=== PATIENT | male | born 1945 | race Caucasian/White ===

== ENCOUNTER 2017-03-21 07:59 | Inpatient (IN) | payer OTHER ==
[2017-03-21] VITALS (12 sets, daily range): BP systolic 95–110; BP diastolic 55–65; PULSE 57–65; TEMP 36.6; O2SAT 91–97; Ht 177.8 cm; Wt 91.3 kg
[~2017-03-21] VITALS: Ht 177.8 cm; Wt 91.3 kg
[~2017-03-21 07:59] MED LIST: ASPEC325 PO; ATOR-22 PO; CLX20 PO; LISI5TAB3 PO; NXM/40 PO
[2017-03-21] MEDS ORDERED: SIMV20TA2 PO (08:23)
[2017-03-21] MEDS ORDERED: PRLSR20 PO (08:23)
[2017-03-21] MEDS ORDERED: LSN/10125 PO (08:23)
[2017-03-21] MEDS ORDERED: AMLO-114 PO (08:23)
[2017-03-21] MEDS ORDERED: EFF75 PO (08:23)
--- NOTE | 2017-03-21 08:57 | EMERGENCY ROOM VISIT NOTE ---
History Report prepared by Tyesha: Verito Fajardo Under the Supervision of: Dr. Leela López D.O. First contact with patient: 08:03 Chief Complaint: CHEST PAIN Stated Complaint: CHEST PAIN Nursing Triage Summary: pt reports chest pain started this am at 0600 described as discomfort like squeezing intermittently. feels nauseated. pain radiates to left arm. has hx of mi in 1999. pt reports he has been sob for last week increasingly worse with exertion. History of Present Illness The patient is a 72 year old male who presents to the Emergency Room with complaints of intermittent chest pain for the past two hours. He states that he felt fine when he went to bed last night, and he was not having any chest pain. He woke up this morning with achy chest pain that he rates as a 2/10 in severity. It radiates down his left arm and into his neck and posterior shoulder. He was diaphoretic and called an ambulance to come to the ED. His chest pain is worsened with exertion and alleviated with rest. He denies any current chest pain or shortness of breath. The patient has a history of a previous [place] in 1999. He had one stent placed at that time. He does not follow regularly with cardiology and estimates that he has not seen a a p supervisor in over 10 years. He reports that his current pain feels very similar to the pain that he experienced with his previous TN, except that it is less severe now. The patient states that he has not been feeling well for the past week. He has been experiencing nausea, increased fatigue, and shortness of breath with exertion. He denies fevers, chills, cough, vomiting, lightheadedness, and dizziness. He did not take any medication for his symptoms today. He takes aspirin daily and denies any other anticoagulant use. The patient received aspirin and Zofran en route to the ED. Source of History: patient Onset: 2 hours ago Position: chest Symptom Intensity: 2/10 Quality: ache Timing: intermittent Modifying Factors (Worsening): exertion Modifying Factors (Relieving): rest Associated Symptoms: + diaphoresis, + neck pain, + SOB, + nausea, + back pain, + fatigue, No fevers, No chills, No cough, No vomiting Note: Pt denies lightheadedness and dizziness. Review of Systems See HPI for pertinent positives & negatives. A total of 10 systems reviewed and were otherwise negative. Past Medical & Surgical Medical Problems: (1) Hx of myocardial infarction (2) Hypertension Surgical Problems: (1) History of hernia repair Family History Diabetes mellitus FHx: cancer Heart disease Hypertension Social History Smoking Status: Former Smoker Alcohol Use: occasionally Housing Status: lives alone Occupation Status: retired Current/Historical Medications Scheduled Amlodipine (Norvasc), 10 MG PO DAILY Hctz/Lisinopril (Lisinopril/Hctz 10/12.5 Mg), 1 TAB PO DAILY Omeprazole (Prilosec), 20 MG PO DAILY Simvastatin (Zocor), 20 MG PO DAILY Venlafaxine Hcl (Effexor Xr), 75 MG PO DAILY Allergies Coded Allergies: No Known Allergies (Unverified , 12/26/06) Physical Exam Vital Signs Date Time Temp Pulse Resp B/P (MAP) Pulse Ox O2 Delivery O2 Flow Rate FiO2 03/21/17 12:01 107/62 03/21/17 11:59 62 17 94 03/21/17 11:38 64 20 104/67 96 Room Air 03/21/17 11:31 104/67 03/21/17 11:29 64 20 95 03/21/17 11:01 103/58 03/21/17 10:59 62 20 92 03/21/17 10:31 106/62 03/21/17 10:29 57 6 93 03/21/17 10:06 60 18 107/63 96 Room Air 03/21/17 10:01 107/63 03/21/17 09:59 67 14 96 03/21/17 09:31 116/61 03/21/17 09:29 55 12 96 03/21/17 09:01 113/60 03/21/17 08:59 58 18 133/85 96 Room Air 03/21/17 08:59 58 19 96 03/21/17 08:58 113/70 03/21/17 08:29 80 22 93 03/21/17 08:05 93 Room Air 03/21/17 08:05 93 Room Air 03/21/17 08:05 36.6 83 18 133/85 93 Room Air 03/21/17 08:03 76 03/21/17 08:01 133/85 Physical Exam GENERAL: alert, well appearing, well nourished, no distress, non-toxic EYE EXAM: normal conjunctiva, PERRL and EOM's grossly intact OROPHARYNX: no exudate, no erythema, lips, buccal mucosa, and tongue normal and mucous membranes are moist NECK: supple, no nuchal rigidity, no adenopathy, non-tender LUNGS: Breath sounds diminished, no wheezes, rhonchi, or rales. Normal chest wall mechanics HEART: no murmurs, S1 normal and S2 normal ABDOMEN: abdomen soft, non-tender, normo-active bowel sounds, no masses, no rebound or guarding. BACK: Back is symmetrical on inspection and there is no deformity, no midline tenderness, no CVA tenderness. SKIN: no rashes and no bruising UPPER EXTREMITIES: upper extremities are grossly normal. LOWER EXTREMITIES: No pitting edema. NEURO EXAM: Normal sensorium, cranial nerves II-XII grossly intact, normal speech, no gross weakness of arms, no gross weakness of legs. Medical Decision & Procedures ER Provider Diagnostic Interpretation: Radiology results have been interpreted by the radiologist and reviewed by me. CHEST ONE VIEW PORTABLE CLINICAL HISTORY: Atypical chest pain COMPARISON STUDY: No previous studies for comparison. FINDINGS: The cardiac and mediastinal contours are normal. There is no evidence of focal pulmonary consolidation. There is no evidence of failure. No pleural effusions are visualized.[ IMPRESSION: No active disease in the chest. Electronically signed by: Rip Galdamez M.D. 03/21/2017 8:58 AM Dictated Date/Time: 03/21/2017 8:56 AM Laboratory Results 03/21/17 08:05 Red Blood Count 5.29, Mean Corpuscular Volume 87.7, Mean Corpuscular Hemoglobin 31.9, Mean Corpuscular Hemoglobin Concent 36.4, Mean Platelet Volume 11.3, Neutrophils (%) (Auto) 71.0, Lymphocytes (%) (Auto) 18.7, Monocytes (%) (Auto) 9.3, Eosinophils (%) (Auto) 0.7, Basophils (%) (Auto) 0.1, Neutrophils # (Auto) 6.75, Lymphocytes # (Auto) 1.78, Monocytes # (Auto) 0.89, Eosinophils # (Auto) 0.07, Basophils # (Auto) 0.01 03/21/17 08:05 Test 03/21/17 08:05 03/21/17 09:30 03/21/17 11:38 White Blood Count 9.52 K/uL (4.8-10.8) Red Blood Count 5.29 M/uL (4.7-6.1) Hemoglobin 16.9 g/dL (14.0-18.0) Hematocrit 46.4 % (42-52) Mean Corpuscular Volume 87.7 fL (80-100) Mean Corpuscular Hemoglobin 31.9 pg (25-34) Mean Corpuscular Hemoglobin Concent 36.4 g/dl (32-36) Platelet Count 255 K/uL (130-400) Mean Platelet Volume 11.3 fL (7.4-10.4) Neutrophils (%) (Auto) 71.0 % Lymphocytes (%) (Auto) 18.7 % Monocytes (%) (Auto) 9.3 % Eosinophils (%) (Auto) 0.7 % Basophils (%) (Auto) 0.1 % Neutrophils # (Auto) 6.75 K/uL (1.4-6.5) Lymphocytes # (Auto) 1.78 K/uL (1.2-3.4) Monocytes # (Auto) 0.89 K/uL (0.11-0.59) Eosinophils # (Auto) 0.07 K/uL (0-0.5) Basophils # (Auto) 0.01 K/uL (0-0.2) RDW Standard Deviation 38.9 fL (36.4-46.3) RDW Coefficient of Variation 12.2 % (11.5-14.5) Immature Granulocyte % (Auto) 0.2 % Immature Granulocyte # (Auto) 0.02 K/uL (0.00-0.02) Prothrombin Time 10.2 SECONDS (9.0-12.0) Prothromb Time International Ratio 1.0 (0.9-1.1) Anion Gap 8.0 mmol/L (3-11) Est Creatinine Clear Calc Drug Dose 79.1 ml/min Estimated GFR () 88.0 Estimated GFR (Non- 75.9 BUN/Creatinine Ratio 16.0 (10-20) Calcium Level 9.2 mg/dl (8.5-10.1) Magnesium Level 2.0 mg/dl (1.8-2.4) Total Bilirubin 0.6 mg/dl (0.2-1) Aspartate Amino Transf (AST/SGOT) 17 U/L (15-37) Alanine Aminotransferase (ALT/SGPT) 22 U/L (12-78) Alkaline Phosphatase 90 U/L (45-117) Pro-B-Type Natriuretic Peptide 308 pg/ml (0-900) Total Protein 7.6 gm/dl (6.4-8.2) Albumin 3.7 gm/dl (3.4-5.0) Globulin 3.9 gm/dl (2.5-4.0) Albumin/Globulin Ratio 1.0 (0.9-2) Activated Partial Thromboplast Time 25.5 SECONDS (21.0-31.0) Partial Thromboplastin Ratio 1.0 Total Creatine Kinase 193 U/L (39-308) Creatine Kinase MB 31.8 ng/ml (0.5-3.6) Creatine Kinase MB Ratio 16.5 (0-3.0) Troponin I 2.840 ng/ml (0-0.045) Laboratory results per my review. Medications Administered Medications (Trade) Dose Ordered Sig/José Manuel Route Start Time Stop Time Status Last Admin Dose Admin Nitroglycerin (Nitroglycerin 2% Oint) 1 inch NOW ONCE EXT 03/21/17 10:00 03/21/17 10:01 DC 03/21/17 10:04 1 INCH Sodium Chloride 1,000 ml @ 125 mls/hr Q8H STAT IV 03/21/17 10:23 03/21/17 14:27 DC 03/21/17 10:37 125 MLS/HR Heparin Sodium/ Dextrose (Heparin 25,000 Unit/500ml D5W) 25,000 unit STK-MED ONCE .ROUTE 03/21/17 11:23 03/21/17 11:24 DC 03/21/17 11:34 25,000 UNIT Heparin Sodium (Porcine) (Heparin Iv Bolus) 10,000 unit STK-MED ONCE .ROUTE 03/21/17 11:24 03/21/17 11:25 DC 03/21/17 11:34 10,000 UNIT ECG Indication: chest pain Rate (beats per minute): 76 Rhythm: normal sinus Findings: nonspecific-ST abn (lead 1 & 2), ST depression (V3 - V6), other ( normal axis, normal intervals) Comparison ECG Date: no prior available Change: ST depression are less severe on repeat ECG. ED Course 0803: The patient was evaluated in room B2. A complete history and physical exam was performed. 0951: I updated the patient and his family at bedside. 1000: Nitroglycerin 1 inch EXT 1016: I reevaluated the patient and he is pain free at this time. I discussed the results and treatment plan with the patient. I answered all pertaining questions that he had. He expressed understanding and verbalized agreement. 1023: NSS 1000 ml @ 125 mls/hr IV 1030: Dr. Barraza of the [facility] will evaluate the patient for further management. 1044: I discussed the patient's case with Dr. Pino of cardiology. He will consult with the patient in the ED. 1058: Heparin IV bolus and drip 1133: I reassessed the patient and he is doing well. Medical Decision Differential diagnoses includes but is not limited to acute coronary syndrome, myocardial infarction, pericarditis, pulmonary embolus, aortic dissection, pneumonia, pneumothorax, musculoskeletal, shingles, esophageal. Patient well-appearing here and no pain while resting in bed. First EKG concerning with ST depression. Repeat EKG after nitroglycerin and started on heparin was improved. Troponin mildly elevated, vital signs otherwise stable. Patient admitted for non-ST elevation TN. Patient aware of likely need for cardiology consultation and additional testing/interventions. Doubt dissection , tamponade, PE, no evidence of infiltrate or effusion, no evidence of perforation or GI bleed. Medication Reconcilliation Current Medication List: was personally reviewed by me Blood Pressure Screening Patient's blood pressure: Normal blood pressure Consults Time Called: 1041 Consulting Physician: Dr. Pino Returned Call: 1044 I discussed the patient's case with Dr. Pino of cardiology. He will consult with the patient in the ED. Impression Primary Impression: NSTEMI (non-ST elevated myocardial infarction) Additional Impression: Chest pain Critical Care I have personally spent 35 minutes of critical care time in the direct management of this patient. This includes bedside care, interpretation of diagnostic studies, and testing, discussion with consultants, patient, and family members, and other required patient management activities. This 35 minutes is in excess of all separately billable procedures. Scribe Attestation The scribe's documentation has been prepared under my direction and personally reviewed by me in its entirety. I confirm that the note above accurately reflects all work, treatment, procedures, and medical decision making performed by me. Departure Information Dispostion Being Evaluated By Hospitalist Referrals No Doctor, Assigned (PCP) Patient Instructions My [facility] Problem Qualifiers Additional Impression: Chest pain Chest pain type: chest pain due to myocardial ischemia Ischemic chest pain type: stable angina pectoris Qualified Codes: I20.8 - Other forms of angina pectoris
[2017-03-21] MEDS ORDERED: ASPIRIN/ALUM/MAGNES/CAL CARB 325 MG TAB PO STA (09:03)
[2017-03-21 09:24] LABS: BASO % 0.1 %; BASO ABS # 0.01 K/uL (0-0.2); COMPLETE YES; EOS % 0.7 %; HEMATOCRIT 46.4 % (42-52); IG% 0.2 %; LYMPH % 18.7 %; LYMPH ABS # 1.78 K/uL (1.2-3.4); MEAN CELL VOLUME 87.7 fL (80-100); MEAN CORPUSCULAR HEMOGLOBIN 31.9 pg (25-34); MEAN CORPUSCULAR HGB CONC 36.4 g/dl (32-36); MEAN PLATELET VOLUME 11.3 fL (7.4-10.4); MONO % 9.3 %; PLATELET COUNT 255 K/uL (130-400); RED BLOOD COUNT 5.29 M/uL (4.7-6.1); WHITE BLOOD COUNT 9.52 K/uL (4.8-10.8)
[2017-03-21 09:27] LABS: PROTHROMBIN TIME (PATIENT) 10.2 SECONDS (9.0-12.0)
[2017-03-21 09:33] LABS: CALCIUM 9.2 mg/dl (8.5-10.1); POTASSIUM 3.7 mmol/L (3.5-5.1)
[2017-03-21] MEDS ORDERED: NITROGLYCERIN OINT 2% 1GM PACKET EXT ONE (10:00)
[2017-03-21] MEDS ORDERED: SODIUM CHLORIDE 0.9% 1000ML 1,000 ML IV STA (10:23)
[2017-03-21] MEDS ORDERED: HEPARIN SOD 5000 UNIT/0.5 ML CARP ONE (11:23)
[2017-03-21] MEDS ORDERED: HEPARIN 25000 UNIT/500 ML D5W ONE (11:23)
[2017-03-21] MEDS ORDERED: HEPARIN SOD (PORCINE) 1000 UNIT/ML 10 ML VIAL ONE ×3 (11:24→21:11)
[2017-03-21] MEDS ORDERED: NITROGLYCERIN 0.4 MG SL PER TAB CHARGE SL PRN (11:30)
[2017-03-21] MEDS ORDERED: ONDANSETRON INJ 2 MG/ML 2 ML VIAL IV PRN (11:30)
[2017-03-21] MEDS ORDERED: MoRPHine SULFATE 2 MG/ML CARP IV PRN (11:30)
[2017-03-21] MEDS ORDERED: ACETAMINOPHEN 325 MG TAB PO PRN ×2 (11:30→20:30)
[2017-03-21] MEDS ORDERED: ZOLPIDEM TARTRATE 5 MG TAB PO PRN (11:30)
[2017-03-21] MEDS: HEPARIN 25,000 UNIT/500ML D5W 500 ML IV PRN ×2 (11:36→11:37)
--- NOTE | 2017-03-21 11:53 | History and Physical ---
History & Physical Date & Time of Service: Mar 21, 2017 at 11:29 Chief Complaint: Chest Pain Primary Care Physician: Teddy Barroso M.D. History of Present Illness Source: patient, family The patient is a 72-year-old male who developed shortness of breath 4 days ago while he was getting ready to mow his lawn. He has continued to have chest discomfort into his left axilla since that time, and has had nausea and persistent fatigue. He reports that last night he was not able to sleep, and when he developed pain radiating into his neck and left arm along with sweats this morning, he called the ambulance to bring him to the emergency department. He does have a history of a previous [place] with stent placement in 1999. He reports that his current pain feels very similar to but is less severe than the pain that he had with his previous [place]. He reports that he did take all of his blood pressure medications this morning, and is very regular about taking Family History Noncontributory Social History Smoking Status: Former Smoker Smokeless Tobacco Use: No Alcohol Use: none Drug Use: none Occupational Status: retired Immunizations History of Influenza Vaccine: Unknown History of Tetanus Vaccine?: Unknown History of Pneumococcal: Unknown History of Hepatitis B Vaccine: Unknown Multi-Drug Resistant Organisms History of MDRO: No Allergies Coded Allergies: No Known Allergies (Unverified , 12/26/06) Home Medications Scheduled Amlodipine (Norvasc), 10 MG PO DAILY Hctz/Lisinopril (Lisinopril/Hctz 10/12.5 Mg), 1 TAB PO DAILY Omeprazole (Prilosec), 20 MG PO DAILY Simvastatin (Zocor), 20 MG PO DAILY Venlafaxine Hcl (Effexor), 75 MG PO DAILY Review of Systems The patient denies lower extremity swelling, vision change, hearing change, sore throat, fevers, chills, sweats, weight change, vomiting, diarrhea or constipation, abdominal pain, pelvic pain, blood in urine or stool, dysuria, urinary frequency or urgency, lightheadedness, dizziness, headache, memory loss , rash, abnormal bruising or bleeding, imbalance, focal or generalized weakness , numbness or tingling in legs, generalized arthralgias or myalgias, neck pain, night sweats, or allergy symptoms. The review of systems is otherwise negative other than for that already noted above, and at least 10 systems have been reviewed. Physical Exam Vital Signs Date Time Temp Pulse Resp B/P (MAP) Pulse Ox O2 Delivery O2 Flow Rate FiO2 03/21/17 10:06 60 18 107/63 96 Room Air 03/21/17 08:59 58 18 133/85 96 Room Air 03/21/17 08:05 93 Room Air 03/21/17 08:05 93 Room Air 03/21/17 08:05 36.6 83 18 133/85 93 Room Air 03/21/17 08:03 76 The patient is awake, well-developed and adequately nourished, alert and oriented 3, normocephalic and atraumatic, lying in bed and in no acute distress. HEENT--PERRL, EOMI, mucous membranes and oropharynx normal. Neck--supple, no JVD or bruits, thyroid normal, trachea midline, no adenopathy. Heart--normal S1 and S2, no extra beats, no murmurs, rubs or gallops. Lungs--clear bilaterally with good air movement, no respiratory distress, no accessory muscle use. Abdomen--normal bowel sounds and soft, nontender and nondistended, no hernias or masses, no organomegaly. Extremities--no cyanosis, clubbing or edema. There are good distal pulses b/l. Dermatologic--normal skin turgor, normal color, warm and dry, no abnormal lymph nodes, no rash. Neurologic--cranial nerves II through XII grossly intact, motor and sensory examination normal. Rheumatologic--normal range of motion, nontender, muscles and joints. Psychiatric--normal affect. Diagnostics Laboratory Results Results Past 24 Hours Test 03/21/17 08:05 03/21/17 09:30 03/21/17 11:21 Range/Units White Blood Count 9.52 4.8-10.8 K/uL Red Blood Count 5.29 4.7-6.1 M/uL Hemoglobin 16.9 14.0-18.0 g/dL Hematocrit 46.4 42-52 % Mean Corpuscular Volume 87.7 80-100 fL Mean Corpuscular Hemoglobin 31.9 25-34 pg Mean Corpuscular Hemoglobin Concent 36.4 32-36 g/dl Platelet Count 255 130-400 K/uL Mean Platelet Volume 11.3 7.4-10.4 fL Neutrophils (%) (Auto) 71.0 % Lymphocytes (%) (Auto) 18.7 % Monocytes (%) (Auto) 9.3 % Eosinophils (%) (Auto) 0.7 % Basophils (%) (Auto) 0.1 % Neutrophils # (Auto) 6.75 1.4-6.5 K/uL Lymphocytes # (Auto) 1.78 1.2-3.4 K/uL Monocytes # (Auto) 0.89 0.11-0.59 K/uL Eosinophils # (Auto) 0.07 0-0.5 K/uL Basophils # (Auto) 0.01 0-0.2 K/uL RDW Standard Deviation 38.9 36.4-46.3 fL RDW Coefficient of Variation 12.2 11.5-14.5 % Immature Granulocyte % (Auto) 0.2 % Immature Granulocyte # (Auto) 0.02 0.00-0.02 K/uL Prothrombin Time 10.2 9.0-12.0 SECONDS Prothromb Time International Ratio 1.0 0.9-1.1 Sodium Level 139 136-145 mmol/L Potassium Level 3.7 3.5-5.1 mmol/L Chloride Level 103 98-107 mmol/L Carbon Dioxide Level 28 21-32 mmol/L Anion Gap 8.0 3-11 mmol/L Blood Urea Nitrogen 16 7-18 mg/dl Creatinine 1.00 0.60-1.40 mg/dl Est Creatinine Clear Calc Drug Dose 79.1 ml/min Estimated GFR () 88.0 Estimated GFR (Non- 75.9 BUN/Creatinine Ratio 16.0 10-20 Random Glucose 151 70-99 mg/dl Calcium Level 9.2 8.5-10.1 mg/dl Magnesium Level 2.0 1.8-2.4 mg/dl Total Bilirubin 0.6 0.2-1 mg/dl Aspartate Amino Transf (AST/SGOT) 17 15-37 U/L Alanine Aminotransferase (ALT/SGPT) 22 12-78 U/L Alkaline Phosphatase 90 45-117 U/L Troponin I 0.381 0-0.045 ng/ml Pro-B-Type Natriuretic Peptide 308 0-900 pg/ml Total Protein 7.6 6.4-8.2 gm/dl Albumin 3.7 3.4-5.0 gm/dl Globulin 3.9 2.5-4.0 gm/dl Albumin/Globulin Ratio 1.0 0.9-2 Activated Partial Thromboplast Time 25.5 21.0-31.0 SECONDS Partial Thromboplastin Ratio 1.0 Creatine Kinase MB Ratio 0-3.0 Diagnostic Radiology Patient Name: TREVOR LANDIS Unit Number: [id number] Dictated: 03/21/17855 Transcribed: 03/21/17855 ARG Printed Date/Time: [~ rep prt dt]/[~ rep prt tm] [~ rep ct labl] - [~ rep ct ivnm] [facility] Radiology Department [place], [place] [id number] Dictated: 03/21/17855 Transcribed: 03/21/17855 ARG Printed Date/Time: [~ rep prt dt]/[~ rep prt tm] [~ rep ct labl] - [~ rep ct ivnm] [~ rep ct add3]] CHEST ONE VIEW PORTABLE CLINICAL HISTORY: Atypical chest pain COMPARISON STUDY: No previous studies for comparison. FINDINGS: The cardiac and mediastinal contours are normal. There is no evidence of focal pulmonary consolidation. There is no evidence of failure. No pleural effusions are visualized.[ IMPRESSION: No active disease in the chest. Electronically signed by: Rip Galdamez M.D. 03/21/2017 8:58 AM Dictated Date/Time: 03/21/2017 8:56 AM The status of this report is Signed. Draft = Not yet reviewed or approved by Radiologist. Signed = Reviewed and approved by Radiologist. <AttendingPhy></AttendingPhy> <FamilyPhy>Teddy Barroso M.D.</FamilyPhy > <PrimaryPhy>Teddy Barroso M.D.</PrimaryPhy> <UnitNumber>[id number]</ UnitNumber> <VisitNumber>[id number]</VisitNumber> <PatientName>TREVOR LANDIS</PatientName> <DateOfBirth>1945</DateOfBirth> <Location>[facility].EDB< /Location> <ServiceDate>03/21/17</ServiceDate> <MNE>ESINDI</MNE> <OrderingPhy> PheLeela king DO</OrderingPhy> <OrderingPhyMNE>f rep ord dr bello</ OrderingPhyMNE> <DictatingPhyMNE>f rep dict dr bello</DictatingPhyMNE> <CCListMNE> f rep ct mne</CCListMNE> <AdmittingPhyMNE>f pt admit dr bello</AdmittingPhyMNE> < AttendingPhyMNE>f pt attend dr bello</AttendingPhyMNE> <ConsultingPhyMNE>f pt consult dr bello</ConsultingPhyMNE> <FamilyPhyMNE>f pt fam dr bello</FamilyPhyMNE> <OtherPhyMNE>f pt other dr belol</OtherPhyMNE> < PrimaryPhyMNE>f pt prim care dr bello</PrimaryPhyMNE> <ReferringPhyMNE>f pt referring dr bello</ReferringPhyMNE> EKG EKG #1 shows normal sinus rhythm at 76 bpm, with ST depressions in V3 through V6 , and PVCs. EKG #2, after placement of Nitropaste 1 inch, shows sinus bradycardia at 57 bpm , significant improvement in above ST depressions, and no further PVCs Impression Assessment and Plan NSTEMI/Unstable Angina--The patient will be admitted to telemetry for serial cardiac enzymes, cardiac rhythm monitoring and a 2-D echocardiogram with Dopplers. Aspirin 81 mg chewable every morning. Nitropaste 1 inch to the inferior chest wall every 6 hours. Heparin infusion standard weight-based protocol with bolus. NSS with KCl 20 mEq at 100 mils per hour. Discontinue HCTZ. Continue lisinopril 10 mg by mouth every morning. Decrease amlodipine from 10 mg to 5 mg by mouth daily. Unable to add beta aleksandra at this time due to low blood pressure. Consult cardiology Hyperlipidemia--change simvastatin 20 mg by mouth daily 2 atorvastatin 80 mg by mouth daily. GERD--change omeprazole 20 mg by mouth daily to pantoprazole 40 mg by mouth daily and add famotidine 20 mg IV every 12 hours. Depression--continue Effexor 75 mg by mouth daily. Level of Care Telemetry Advanced Directives Existing Advance Directive: No Existing Living Will: No Existing Power of Lithographic Proofer: No Resuscitation Status FULL RESUSCITATION VTE Prophylaxis Risk Level: Moderate Given or contraindicated: Unfractionated heparin SQ Social Service Consult None Apply
[2017-03-21 12:32] LABS: CKMB/CK RATIO 16.5 (0-3.0)
[2017-03-21] MEDS ORDERED: VENL75CA PO (14:42)
[2017-03-21] MEDS: FAMOTIDINE IV INJ 20 MG in DEXTROSE 5% 100ML 100 ML IV SCH ×2 (14:51→22:27)
[2017-03-21] MEDS: NSS + 20MEQ KCL 1000ML 1,000 ML IV SCH ×2 (14:51→22:29)
[2017-03-21] MEDS: NITROGLYCERIN OINT 2% 1GM PACKET EXT SCH ×2 (16:26→22:00)
--- NOTE | 2017-03-21 16:41 | CARDIOLOGY CONSULTATION REPORT ---
DATE OF CONSULTATION: 03/21/2017 REASON FOR CONSULTATION: 1. NSTEMI. 2. CAD. HISTORY OF PRESENT ILLNESS: Mr. Jackson is a 72-year-old white male with a history of longstanding hypertension, dyslipidemia, and CAD, status post WI in 1999 with deployment of a stent at [facility] (details unknown, the patient does not have stent card) who presented acutely to [facility] Emergency Room today, complaining of exertional dyspnea x 5 days, followed by development of a left-sided chest discomfort, which radiates into his axilla, left arm, left neck and he has had ongoing associated diaphoresis, nausea, and fatigue. The patient states that these symptoms have only been present with exertion and have consistently gone away within 5 minutes of resting. He has not tried a nitroglycerin for this. His symptoms are very reminiscent to his prior angina pectoris. The patient offers no other complaints. He denies any shortness of breath at rest, orthopnea, or PND. He denies any palpitations, syncope, or near syncope. He has not experienced any angina pectoris at rest. He remains compliant with his medications and has not had any of side effects. MEDICATIONS: 1. Aspirin 81 mg daily. 2. Norvasc 5 mg daily. 3. Effexor XR 75 mg daily. 4. Lisinopril 10 mg a day. 5. Lipitor 80 mg q.a.m. 6. Protonix 40 mg q.a.m. 7. Nitroglycerin ointment 1 inch q. 6 hours to external chest wall. 8. Famotidine 20 mg IV q. 12 hours. 9. Normal saline with potassium chloride at 100 mL per hour. 10. Zofran 4 mg IV q. 6 hours p.r.n. 11. Acetaminophen 650 mg p.o. q. 4 hours p.r.n. for fever. 12. Ambien p.r.n. 13. Morphine sulfate 2 mg IV q. 30 minutes p.r.n. for chest pain. 14. Heparin drip. ALLERGIES: NKDA. PAST MEDICAL HISTORY: 1. Hypertension. 2. Dyslipidemia. 3. History of WI in 1999 with stent deployment, details unknown. 4. DJD. 5. History of tobacco use previously. 6. GERD. 7. Depression. SOCIAL HISTORY: The patient is . His after a prolonged gbibons with breast cancer. He is accompanied by his daughter and son today, he is from a very supportive family. He does not use tobacco or tobacco products. He quit smoking in 1999. FAMILY HISTORY: Noncontributory. PHYSICAL EXAMINATION: VITAL SIGNS: Temperature is 36.6 degrees Celsius, pulse 58 and regular, respiratory rate is 12 and unlabored, blood pressure 104/60 and SpO2 is 94% on room air. GENERAL: The patient is in no acute distress. He is lying comfortably in room 289, bed 2. HEAD, EYES, EARS, NOSE, AND THROAT: Head is atraumatic and normocephalic. EOMs intact. Sclera anicteric. Face is symmetric. No perioral cyanosis. Mucous membranes are moist. NECK: Without thyromegaly, adenopathy, or JVD. Carotid upstrokes are +2 bilaterally without bruits. CHEST AND LUNGS: Clear to auscultation throughout all lung delgadillo, no wheezes, rales, or rhonchi. CARDIOVASCULAR SYSTEM: S1 and S2 are regular, bradycardic, without obvious murmur, gallop, or rub. PMI is nondisplaced. No lifts, heaves, or thrills. No abdominal, aortic or renal bruits. Femoral arterial upstrokes are +2 bilaterally. ABDOMINAL EXAMINATION: Bowel sounds are present. No masses, organomegaly, or tenderness. EXTREMITIES: No clubbing, cyanosis, or edema. Intact radial and posterior tibial pulses bilaterally. Gerry's test positive for both ulnar and radial reflow of the right upper extremity. NEUROLOGIC EXAMINATION: The patient is awake, alert and oriented. Pleasant and cooperative. Answers questions appropriately. Speech is clear. Normal movement in all 4 extremities. Gait pattern not assessed. EKG: On admission shows sinus rhythm with occasional PVCs; Q waves present in leads 2, 3, and aVF; appears to be some T-wave inversion in the precordial leads, V3 through V6 as well as 1 and aVL. LABORATORY DATA: White blood cell count is 9.52, hemoglobin is 16.9 g/dL, hematocrit 46.4%, and platelet count 255,000. Sodium is 139 mmol/L, potassium 3.7 mmol/L, BUN 16 mg/dL, and creatinine 1.00 mg/dL. Total CK is 193 with a CK-MB of 31.8. Troponin I is 2.840 and 0.381 ng/mL. ProBNP is normal at 308. Chest x-ray on admission shows no active disease in the chest. ASSESSMENT: 1. Unstable angina/non-ST elevation myocardial infarction in the patient with known history of coronary artery disease. 2. History of prior intracoronary stent in 1999 (details unknown). 3. Hypertension, controlled. 4. Dyslipidemia, on high-density statin therapy. 5. Borderline low heart rate and blood pressure. There is no room for beta blockers at this point. 6. Currently asymptomatic. PLAN: 1. The patient has evidence of an NSTEMI. At the present time, he is asymptomatic. 2. Continue high-density statin therapy. 3. Continue Aspirin. 4. Continue Heparin drip. 5. Continue topical nitrates. 6. Continue Amlodipine 5 mg daily. 7. Continue Lisinopril. 8. Add beta aleksandra when heart rate and blood pressure allow. 9. The patient will be made n.p.o. after midnight and anticipate cardiac catheterization +/- PCI for tomorrow morning with Dr. Rebolledo. 10. We will continue to follow closely while hospitalized. MIGEL
[2017-03-21 18:36] LABS: CKMB/CK RATIO 16.2 (0-3.0)
[2017-03-21 20:06] LABS: PARTIAL THROMBOPLASTIN RATIO 1.3
[2017-03-21] MEDS ORDERED: MIDAZOLAM HCL 1 MG/ML 2ML VIAL ONE ×2 (20:11→20:56)
[2017-03-21] MEDS ORDERED: NiCARDipine HCL INJ 2.5 MG/ML 10 ML AMP ONE (20:11)
[2017-03-21] MEDS ORDERED: FENTANYL CITRATE INJ 50 MCG/1 ML 2 ML VIAL ONE (20:11)
[2017-03-21] MEDS ORDERED: NITROGLYCERIN/D5W 100MCG/ML 20ML SYR ONE (20:12)
--- NOTE | 2017-03-21 20:21 | Procedure Note ---
Pre-Mod Sedation Assessment General Date of Moderate Sedation: Mar 21, 2017. Vital Signs: Vital Signs Past 12 Hours Date Time Temp Pulse Resp B/P (MAP) Pulse Ox O2 Delivery O2 Flow Rate FiO2 03/21/17 19:47 36.6 65 16 101/59 94 Room Air 03/21/17 16:00 94 Room Air 03/21/17 13:52 94 Room Air 03/21/17 13:31 104/60 03/21/17 13:29 58 13 94 03/21/17 13:01 107/63 03/21/17 12:59 59 17 95 03/21/17 12:31 99/59 03/21/17 12:29 52 24 93 03/21/17 12:16 60 03/21/17 12:01 107/62 03/21/17 11:59 62 17 94 03/21/17 11:38 64 20 104/67 96 Room Air 03/21/17 11:31 104/67 03/21/17 11:29 64 20 95 03/21/17 11:01 103/58 03/21/17 10:59 62 20 92 03/21/17 10:31 106/62 03/21/17 10:29 57 6 93 03/21/17 10:06 60 18 107/63 96 Room Air 03/21/17 10:01 107/63 03/21/17 09:59 67 14 96 03/21/17 09:31 116/61 03/21/17 09:29 55 12 96 03/21/17 09:01 113/60 03/21/17 08:59 58 18 133/85 96 Room Air 03/21/17 08:59 58 19 96 03/21/17 08:58 113/70 03/21/17 08:29 80 22 93 Review Cardiovascular: regular rate, rhythm, no edema Abdomen: normal bowel sounds, non tender Lungs: chest non-tender, lungs clear Airway Class: III Pre-Sedation Airway Assessment Oral Cavity: Dentures Able to Visualize Vocal Cords: No Short Thick Neck: No Hx of Sleep Apnea: No Smoking Status: Never Smoker Mallampati Classification: Class III ASA Classification: Class III Procedure Planning Contraindications-for Mod Sed: None Yes Notes The planned sedation has been discussed with the patient and consent obtained. I have identified the patient, determined the appropriateness of sedation and have assessed the patient immediately prior to the procedure. All medicine(s) and interventions are by my order.
[2017-03-21] MEDS ORDERED: TICAGRELOR 90 MG TAB PO ONE (21:25)
[2017-03-21] MEDS ORDERED: CLOPIDOGREL BISULFATE 300 MG TAB PO ONE (21:35)
--- NOTE | 2017-03-21 21:53 | Cardiac Catheterization ---
Procedure Note Procedure Date Mar 21, 2017. Pre-Procedure Diagnosis Non STEMI AUC Score 8 Post-Procedure Diagnosis Severe CAD, Successful PCI, Normal Intracardiac Pressures Procedure(s) Performed Coronary Angiography, Left Heart Cath, Drug Eluting Stent Sales Lead Generator Amaury Erp Engineer(s) Kimberlee Estimated Blood Loss 20 Medication(s) Fentanyl, Heparin, Nicardipine, Nitroglycerin, Versed, Lidocaine 1% Summary of Findings Indication: High-risk NSTEMI Access: 6Fr Right Radial artery Catheters: Trap, JL3.5; EBU 3.75 guide Findings: LM - Luminal irregularities LAD - Calcified mild diffuse disease proximally, 99% calcified mid segment focal stenosis; distal luminal irregularities as wraps around apex. Circumflex - Large caliber vessel, 90% focal stenosis in mid segment of large OM1 before bifurcates. RCA - Dominant, patent proximal to mid segment stent with 20% diffuse instent restenosis; 70-80% mid segment focal stenosis just after prior stent, 40-50% distal RCA stenosis just before bifurcation with R-PDA; R-PDA with 60-70% distal stenosis. LVEDP - 17 -- PCI -- Antithrombotic therapy: Heparin, Clopidogrel Procedure: LM cannulated with EBU 3.75 guide Maintenance Analyst 50 wire passed across lesion into distal vessel Mid LAD lesion predilated with 2.5 and 3.0 compliant balloons Dilated lesion stented with 3.0 x 22 [place] AURELIO Stent post-dilated with 3.25 noncompliant balloon to high atmospheres IC vasodilators administered for spasm Post procedure ARIANA 3 flow, stent well expanded with minimal residual stenosis and no apparent cardiac complications. Arterial Closure: TR Band Summary: 1. Severe multi-vessel coronary artery disease - 99% calcified mid LAD - 90% mid large OM1 - 70-80% mid RCA 2. Borderline intracardiac filling pressure 3. Successful PCI of mid LAD with 3.0 x 22 [place] AURELIO (post-dilated to 3.25) Recommendations: To PCU for continued monitoring Loaded with Clopidogrel in [place] slabs Continue dual-antiplatelet therapy with ASA/Clopidogrel for 1 year Continue statin, and ASCVD risk factor modification Consult cardiac Rehab IV hydration, Echo tomorrow. Will plan for staged PCI of residual OM1, mid RCA disease early AM 8/30 Hemodynamics Rest Ao: 113/64/86 Final Ao: 95/46/71 LV: 115/7 Recommendations PCI without planned CABG Specimens None Radiation Exposure (mGy) 3739 Contrast (mls) 150 Fluids (cc crystalloids) 98 NS Drains None Anesthesia Moderate Procedural Complication(s) None Disposition PCU ACC Data Cardiac Status Clinical evaluation leading to the procedure CAD Presntation: Non STEMI Anginal Classification: CCS IV Heart Failure: No, NYHA Class: CCS I Cardiogenic Shock w/in 24Hrs: No Cardiac Arrest w/in 24Hrs: No Imaging studies past 6 months: No Stress studies past 6 months: No Coronary Anatomy Dominant: Right Left Main (% Stenosis): Normal LAD (% Stenosis): Mid (99) OM1 (% Stenosis): Mid (90) RCA (% Stenosis): Mid (70-80) R PDA (% Stenosis): Distal (60-70) Diagnostic Physician's Name: Sami Rebolledo MD Status: Urgent Closure Device Percutaneous Entry Location: Radial Closure Device: Radial Band Recommendations: PCI without planned CABG PCI Indication: PCI for high risk Non-STEMI Lesion Segment Name: mid LAD Culprit Artery: Yes Stenosis Prior to Rx (%): 99 Chronic Total Occlusion: No IVUS: No FFR: No Pre-Procedure ARIANA Flow: 3 Previously Treated Lesion: No Lesion Complexity: Non-High/Non-C Lesion Length (mm): 18 Thrombus Present: Yes Bifurcation Lesion: No Guidewire Across Lesion: Yes Guidewire: Stenosis Post-Procedure (%): 0 Post-Procedure ARIANA Flow: 3 Device(s) Deployed: Yes Intraprocedure Events Significant Dissection: No Perforation: No
--- NOTE | 2017-03-21 21:54 | Procedure Note ---
Post-Mod Sedation Assessment General Date of Moderate Sedation Mar 21, 2017. Vital Signs: Vital Signs Past 12 Hours Date Time Temp Pulse Resp B/P (MAP) Pulse Ox O2 Delivery O2 Flow Rate FiO2 03/21/17 19:47 36.6 65 16 101/59 94 Room Air 03/21/17 16:00 94 Room Air 03/21/17 13:52 94 Room Air 03/21/17 13:31 104/60 03/21/17 13:29 58 13 94 03/21/17 13:01 107/63 03/21/17 12:59 59 17 95 03/21/17 12:31 99/59 03/21/17 12:29 52 24 93 03/21/17 12:16 60 03/21/17 12:01 107/62 03/21/17 11:59 62 17 94 03/21/17 11:38 64 20 104/67 96 Room Air 03/21/17 11:31 104/67 03/21/17 11:29 64 20 95 03/21/17 11:01 103/58 03/21/17 10:59 62 20 92 03/21/17 10:31 106/62 03/21/17 10:29 57 6 93 03/21/17 10:06 60 18 107/63 96 Room Air 03/21/17 10:01 107/63 03/21/17 09:59 67 14 96 03/21/17 09:31 116/61 03/21/17 09:29 55 12 96 03/21/17 09:01 113/60 03/21/17 08:59 58 18 133/85 96 Room Air 03/21/17 08:59 58 19 96 03/21/17 08:58 113/70 03/21/17 08:29 80 22 93 Review - Discharge Criteria Vital Signs Stable: Yes Alert/Oriented/Conversant: Yes Returned to Baseline Mental St: Yes Nausea Absent/Minimal: Yes Pain/Discomfort/Absent/Minimal: Yes Normal/Baseline Respirations: Yes Active Bleeding?: No Pt Received D/C Instructions: N/A Prescriptions Given: Transmitted Specific Proced. D/C Criteria Distal Pulses Present (Cardiac: Yes Groin site assessed-Card Cath: N/A Voided Prior To Discharge: N/A Discharged Patients Adult Escort/Transportation: Yes
[2017-03-21] MEDS: SODIUM CHLORIDE 0.9% 1000ML 1,000 ML IV SCH (22:28)
[2017-03-22] VITALS (18 sets, daily range): BP systolic 96–135; BP diastolic 60–74; PULSE 54–67; TEMP 36.3–36.5; O2SAT 9–99
[2017-03-22] MEDS ORDERED: NURSING VERBAL MED ORDER ONE (02:00)
[2017-03-22 02:25] LABS: BASO % 0.1 %; BASO ABS # 0.01 K/uL (0-0.2); COMPLETE YES; HEMATOCRIT 38.6 % (42-52); IG% 0.2 %; LYMPH % 25.4 %; LYMPH ABS # 2.27 K/uL (1.2-3.4); MEAN CELL VOLUME 89.4 fL (80-100); MEAN CORPUSCULAR HEMOGLOBIN 30.3 pg (25-34); MEAN CORPUSCULAR HGB CONC 33.9 g/dl (32-36); MEAN PLATELET VOLUME 10.4 fL (7.4-10.4); MONO % 10.9 %; NEUT % 62.4 %; PLATELET COUNT 175 K/uL (130-400); RED BLOOD COUNT 4.32 M/uL (4.7-6.1); WHITE BLOOD COUNT 8.94 K/uL (4.8-10.8)
[2017-03-22 02:29] LABS: PARTIAL THROMBOPLASTIN RATIO 1.6; PROTHROMBIN TIME (PATIENT) 10.7 SECONDS (9.0-12.0)
[2017-03-22 02:36] LABS: BUN/CREATININE RATIO 21.2 (10-20); CALCIUM 8.1 mg/dl (8.5-10.1); CREATININE 0.8 mg/dl (0.60-1.40); MAGNESIUM 1.9 mg/dl (1.8-2.4); POTASSIUM 3.5 mmol/L (3.5-5.1)
[2017-03-22 02:52] LABS: CKMB/CK RATIO 14.6 (0-3.0)
[2017-03-22] MEDS: HEPARIN 25,000 UNIT/500ML D5W 500 ML IV PRN ×2 (02:53→19:06)
[2017-03-22] MEDS: NITROGLYCERIN OINT 2% 1GM PACKET EXT SCH ×4 (03:39→20:40)
[2017-03-22] MEDS: SODIUM CHLORIDE 0.9% 1000ML 1,000 ML IV SCH (03:44)
[2017-03-22] MEDS ORDERED: PERFLUTREN LIPID MICROSPHERE (DEFINITY) IV ONE (07:07)
[2017-03-22] MEDS: LISINOPRIL 10 MG TAB PO SCH (07:37)
[2017-03-22] MEDS: ASPIRIN 81 MG ECTAB PO SCH (07:38)
[2017-03-22] MEDS: PANTOprazole SOD 40 MG TAB PO SCH (07:38)
[2017-03-22] MEDS: AMLODIPINE BESYLATE 5 MG TAB PO SCH (07:38)
[2017-03-22] MEDS: VENLAFAXINE HCL XR 75 MG CAPXR PO SCH (07:38)
[2017-03-22] MEDS: FAMOTIDINE IV INJ 20 MG in DEXTROSE 5% 100ML 100 ML IV SCH (08:00)
[2017-03-22] MEDS: ATORVASTATIN 40 MG TAB PO SCH (08:07)
[2017-03-22] MEDS ORDERED: CLOPIDOGREL BISULFATE 75 MG TAB PO SCH (09:00)
[2017-03-22 09:33] LABS: PARTIAL THROMBOPLASTIN RATIO 1.6
[2017-03-22] MEDS ORDERED: HEPARIN IV BOLUS 3,000 UNIT in SYRINGE 0 ML IV STA (09:49)
--- NOTE | 2017-03-22 12:01 | ECHOCARDIOGRAM REPORT ---
*NOTICE TO RECEIVING DEMOCRAT AGENCY This information is strictly Confidential and protected under [place] law. [place] law prohibits you from making any further disclosure of this information unless further disclosure is expressly permitted by the written consent of the person to whom it pertains or is authorized by law. A general authorization for the release of medical or other information is not sufficient for this purpose. Hospital accepts no responsibility if the information is made available to any other person, INCLUDING THE PATIENT. Interpretation Summary * Name: TREVOR LANDIS Study Date: 03/22/2017 06:27 AM * Patient Location: C.2T\S\E220\S\1 HR: 55 * : 1945 (M/d/yyyy) Gender: Male Height: 70 in * Age: 72 yrs Ethnicity: CA Weight: 207 lb * Ordering Physician: Sami Rebolledo * Referring Physician: SUKI * Performed By: Evonne Dave RDCS * * Reason For Study: AMI * BSA: 2.1 m2 * -- Conclusions -- * There is mild concentric left ventricular hypertrophy. * Left ventricular systolic function is low normal. * Grade I diastolic dysfunction, (abnormal relaxation pattern). * There are regional wall motion abnormalities as specified. * The left atrium is borderline dilated. * There is mild mitral regurgitation. Procedure Details * A contrast injection of Definity was performed to improve assessment of LV function. * Contrast was injected into an intravenous site in the left arm. * One vial of Definity ultrasound contrast was diluted in normal saline to a total volume of 10 ml. A total of '2' ml of solution was administered during imaging. * Lot # [id number] of Definity utilized for procedure. * Expiration date MAY 11. * The attending nurse who injected the contrast agent was RICK REGALADO RN. Left Ventricle * The left ventricle is normal in size. * There is mild concentric left ventricular hypertrophy. * Left ventricular systolic function is low normal. * Ejection fraction 50% * Grade I diastolic dysfunction, (abnormal relaxation pattern). * There are regional wall motion abnormalities as specified. * There is moderate hypokinesis of the basal and mid inferior wall with moderate hypokinesis of the basal lateral wall and severe hypokinesis of the basal septum. Right Ventricle * The right ventricle is grossly normal size. * The right ventricular systolic function is normal as assessed by tricuspid annular plane systolic excursion (TAPSE) (normal >1.5 cm). Atria * The left atrium is borderline dilated. * Right atrial size is normal. Mitral Valve * The mitral valve is grossly normal. * There is mild mitral regurgitation. Tricuspid Valve * The tricuspid valve is not well visualized, but is grossly normal. * Significant tricuspid regurgitation is absent. Aortic Valve * The aortic valve is trileaflet. * Aortic valve sclerosis moderate, without significant aortic valvular stenosis. * No hemodynamically significant valvular aortic stenosis. * Trace aortic regurgitation. * There is an eccentric jet of aortic insufficiency directed against the anterior mitral leaflet. Great Vessels * The aortic root is normal size. Pericardium/Pleural * There is no pericardial effusion. MMode 2D Measurements and Calculations IVSd 1.2 cm IVSs 1.7 cm LVIDd 4.6 cm LVIDs 3.4 cm LVPWd 1.4 cm LVPWs 1.7 cm IVS/LVPW 0.87 FS 26.3 % EDV(Teich) 96.6 ml ESV(Teich) 46.8 ml EF(Teich) 51.6 % EDV(cubed) 96.4 ml ESV(cubed) 38.6 ml EF(cubed) 59.9 % % IVS thick 39.5 % % LVPW thick 23.5 % LV mass(C)d 231.8 grams LV mass(C)dI 109.5 grams/m\S\2 LV mass(C)s 231.6 grams LV mass(C)sI 109.3 grams/m\S\2 SV(Teich) 49.8 ml SI(Teich) 23.5 ml/m\S\2 SV(cubed) 57.7 ml SI(cubed) 27.3 ml/m\S\2 Ao root diam 3.6 cm Ao root area 10.5 cm\S\2 LA dimension 4.0 cm LA/Ao 1.1 LVAd ap4 44.8 cm\S\2 LVLd ap4 10.0 cm EDV(MOD-sp4) 166.5 ml EDV(sp4-el) 169.6 ml LVAs ap4 27.7 cm\S\2 LVLs ap4 7.6 cm ESV(MOD-sp4) 84.0 ml ESV(sp4-el) 86.2 ml EF(MOD-sp4) 49.5 % EF(sp4-el) 49.2 % LVAd ap2 39.5 cm\S\2 LVLd ap2 9.1 cm EDV(MOD-sp2) 138.5 ml EDV(sp2-el) 144.6 ml LVAs ap2 23.8 cm\S\2 LVLs ap2 7.3 cm ESV(MOD-sp2) 65.2 ml ESV(sp2-el) 65.9 ml EF(MOD-sp2) 52.9 % EF(sp2-el) 54.4 % LVLd %diff -9.74 % EDV(MOD-bp) 158.3 ml LVLs %diff -3.81 % ESV(MOD-bp) 75.2 ml EF(MOD-bp) 52.5 % SV(MOD-sp4) 82.5 ml SI(MOD-sp4) 38.9 ml/m\S\2 SV(MOD-sp2) 73.3 ml SI(MOD-sp2) 34.6 ml/m\S\2 SV(MOD-bp) 83.1 ml SI(MOD-bp) 39.2 ml/m\S\2 SV(sp4-el) 83.4 ml SI(sp4-el) 39.4 ml/m\S\2 SV(sp2-el) 78.7 ml SI(sp2-el) 37.1 ml/m\S\2 Doppler Measurements and Calculations MV E max carolynn 61.1 cm/sec MV A max carolynn 99.4 cm/sec MV E/A 0.61 MV dec time 0.32 sec Ao V2 max 126.0 cm/sec Ao max PG 6.3 mmHg Ao max PG (full) 3.9 mmHg LV V1 max PG 2.5 mmHg LV V1 max 78.6 cm/sec
[2017-03-22 16:58] LABS: PARTIAL THROMBOPLASTIN RATIO 2.5
--- NOTE | 2017-03-22 17:21 | Progress Note ---
Subjective Date of Service: Mar 22, 2017. Subjective Pt evaluation today including: conversation w/ patient, physical exam, chart review, lab review, review of studies, conversation w/ [employer] manufacturing consultant, review of inpatient medication list Report doing well, no chest pain, pleasant, no complaining Problem List Medical Problems: (1) Chest pain Status: Acute (2) NSTEMI (non-ST elevated myocardial infarction) Status: Acute Review of Systems Constitutional: No fever, No chills, No sweats, No weight loss, No weakness, No fatigue, No problem reported Eyes: No worsening of vision, No eye pain, No redness, No discharge, No diplopia ENT: No hearing loss, No unusual epistaxis, No nasal symptoms, No sore throat, No tinnitus, No dental problems, No trouble swallowing Respiratory: No cough, No sputum, No wheezing, No shortness of breath, No dyspnea on exertion, No dyspnea at rest, No hemoptysis Cardiac: No chest pain, No orthopnea, No PND, No edema, No claudication, No palpitations Abdomen: No pain, No nausea, No vomiting, No diarrhea, No constipation Musculoskeletal: No joint pain, No muscle pain, No swelling, No calf pain Male : No dysuria, No urinary frequency, No incontinence, No nocturia more than once/night, No slowing stream, No hematuria Neurologic: No memory loss, No paralysis, No weakness, No numbness/tingling, No vertigo, No balance problems Psychiatric: No depression symptoms, No anhedonism, No anxiety, No insomnia, No substance abuse Heme: No abnormal bleeding/bruising, No clotting problems, No swollen lymph nodes, No night sweats Endo: No fatigue, No excessive thirst, No excessive urination Skin: No rash, No itch, No new/changing skin lesions, No color change, No bleeding Objective Vital Signs Date Time Temp Pulse Resp B/P (MAP) Pulse Ox O2 Delivery O2 Flow Rate FiO2 03/22/17 16:00 Nasal Cannula 2.0 03/22/17 15:15 36.4 56 16 114/66 (82) 95 Nasal Cannula 2.0 03/22/17 12:00 Nasal Cannula 2.0 03/22/17 11:51 36.5 60 16 111/62 (78) 99 03/22/17 08:00 Nasal Cannula 2.0 03/22/17 07:32 36.5 55 16 109/61 (77) 98 Nasal Cannula 2.0 03/22/17 05:20 64 18 121/70 (87) 99 Nasal Cannula 2.0 03/22/17 04:30 64 16 120/66 (84) 97 Nasal Cannula 2.0 03/22/17 04:00 96 Nasal Cannula 2.0 03/22/17 03:30 64 20 123/68 (86) 96 Nasal Cannula 2.0 03/22/17 03:27 36.3 61 20 107/62 (77) 95 Nasal Cannula 1.0 03/22/17 02:30 36.3 60 20 121/66 (84) 9 Nasal Cannula 2.0 03/22/17 01:30 57 20 117/68 (84) 96 Nasal Cannula 2.0 03/22/17 01:05 57 18 109/66 (80) 97 Nasal Cannula 2.0 03/22/17 00:50 60 16 110/67 (81) 94 Nasal Cannula 2.0 03/22/17 00:35 59 16 96/62 (73) 97 Nasal Cannula 2.0 03/22/17 00:20 60 18 116/61 (79) 94 Nasal Cannula 2.0 03/22/17 00:01 54 16 106/60 (75) 95 Nasal Cannula 2.0 03/21/17 23:59 97 Nasal Cannula 2.0 03/21/17 23:59 36.6 03/21/17 23:45 58 20 104/64 (77) 97 Nasal Cannula 2.0 03/21/17 23:20 62 18 97/61 (73) 96 Nasal Cannula 2.0 03/21/17 23:05 62 20 101/62 (75) 94 Nasal Cannula 2.0 03/21/17 22:50 64 16 98/65 (76) 95 Nasal Cannula 2.0 03/21/17 22:35 57 20 99/57 (71) 95 Nasal Cannula 2.0 03/21/17 22:20 58 18 99/55 (70) 93 03/21/17 22:05 57 18 110/64 (79) 93 Room Air 03/21/17 21:50 36.6 57 16 95/58 (70) 91 Room Air 03/21/17 21:40 65 18 100/60 (73) 97 Room Air 03/21/17 21:35 68 18 95/64 (74) 94 Room Air 03/21/17 21:30 68 18 103/66 (78) 95 Room Air 03/21/17 21:25 66 18 104/64 (77) 99 Mask 3 03/21/17 19:47 36.6 65 16 101/59 94 Room Air Physical Exam General Appearance: WD/WN, no apparent distress Eyes: normal inspection, PERRL, EOMI, sclerae normal ENT: normal ENT inspection, hearing grossly normal, pharynx normal Neck: supple, no adenopathy, thyroid normal, no JVD, no carotid bruits, trachea midline Respiratory/Chest: chest non-tender, lungs clear, normal breath sounds, no respiratory distress, no accessory muscle use Cardiovascular: regular rate, rhythm, no edema, no gallop, no JVD, no murmur Abdomen: normal bowel sounds, non tender, soft, no organomegaly, no pulsatile mass Extremities: normal range of motion, non-tender, normal inspection, no pedal edema, no calf tenderness, normal capillary refill, pelvis stable Neurologic/Psychiatric: nurse instructor II-XII nml as tested, no motor/sensory deficits, alert, normal mood/affect, oriented x 3 Skin: normal color, warm/dry, no rash Lymphatic: no adenopathy Laboratory Results Last 24 Hours Test 03/21/17 17:50 03/21/17 19:45 03/21/17 20:51 03/21/17 21:08 Total Creatine Kinase 314 U/L Creatine Kinase MB 51.0 ng/ml Creatine Kinase MB Ratio 16.2 Troponin I 8.210 ng/ml Activated Partial Thromboplast Time 34.4 SECONDS Partial Thromboplastin Ratio 1.3 Kaolin Activated Coagulation Time 186 SECONDS 230 SECONDS Test 03/22/17 02:04 03/22/17 09:07 03/22/17 16:27 White Blood Count 8.94 K/uL Red Blood Count 4.32 M/uL Hemoglobin 13.1 g/dL Hematocrit 38.6 % Mean Corpuscular Volume 89.4 fL Mean Corpuscular Hemoglobin 30.3 pg Mean Corpuscular Hemoglobin Concent 33.9 g/dl Platelet Count 175 K/uL Mean Platelet Volume 10.4 fL Neutrophils (%) (Auto) 62.4 % Lymphocytes (%) (Auto) 25.4 % Monocytes (%) (Auto) 10.9 % Eosinophils (%) (Auto) 1.0 % Basophils (%) (Auto) 0.1 % Neutrophils # (Auto) 5.58 K/uL Lymphocytes # (Auto) 2.27 K/uL Monocytes # (Auto) 0.97 K/uL Eosinophils # (Auto) 0.09 K/uL Basophils # (Auto) 0.01 K/uL RDW Standard Deviation 39.9 fL RDW Coefficient of Variation 12.4 % Immature Granulocyte % (Auto) 0.2 % Immature Granulocyte # (Auto) 0.02 K/uL Prothrombin Time 10.7 SECONDS Prothromb Time International Ratio 1.0 Activated Partial Thromboplast Time 42.4 SECONDS 42.3 SECONDS 64.1 SECONDS Partial Thromboplastin Ratio 1.6 1.6 2.5 Sodium Level 140 mmol/L Potassium Level 3.5 mmol/L Chloride Level 105 mmol/L Carbon Dioxide Level 29 mmol/L Anion Gap 6.0 mmol/L Blood Urea Nitrogen 17 mg/dl Creatinine 0.80 mg/dl Est Creatinine Clear Calc Drug Dose 98.9 ml/min Estimated GFR () 104.9 Estimated GFR (Non- 90.5 BUN/Creatinine Ratio 21.2 Random Glucose 103 mg/dl Calcium Level 8.1 mg/dl Magnesium Level 1.9 mg/dl Total Creatine Kinase 247 U/L Creatine Kinase MB 36.1 ng/ml Creatine Kinase MB Ratio 14.6 Troponin I 10.300 ng/ml Assessment and Plan 72-year-old white male admitted on 03/21/2017 because of NSTEMI/Unstable Angina NSTEMI/Unstable Angina Cardiac cath was done yesterday, had 1 stent placed , Per report of the cardiac cath results on 03/21/2017 in below: Summary: 1. Severe multi-vessel coronary artery disease - 99% calcified mid LAD - 90% mid large OM1 - 70-80% mid RCA 2. Borderline intracardiac filling pressure 3. Successful PCI of mid LAD with 3.0 x 22 Baltazar AURELIO (post-dilated to 3.25) Recommendations: To PCU for continued monitoring Loaded with Clopidogrel in labor relations or personnel negotiator Continue dual-antiplatelet therapy with ASA/Clopidogrel for 1 year Continue statin, and ASCVD risk factor modification Consult cardiac Rehab IV hydration Is planning for staged PCI of residual OM1, mid RCA disease early AM 03/23 Echo on February was done, reports in below: * There is mild concentric left ventricular hypertrophy. * Left ventricular systolic function is low normal. * Grade I diastolic dysfunction, (abnormal relaxation pattern). * There are regional wall motion abnormalities as specified. * The left atrium is borderline dilated. * There is mild mitral regurgitation. Continue lisinopril 10 mg by mouth every morning. Decrease amlodipine from 10 mg to 5 mg by mouth daily. Hyperlipidemia--change simvastatin 20 mg by mouth daily 2 atorvastatin 80 mg by mouth daily. GERD--change omeprazole 20 mg by mouth daily to pantoprazole 40 mg by mouth daily and add famotidine 20 mg IV every 12 hours. Depression--continue Effexor 75 mg by mouth daily. Continue current care, GI and DVT prophylaxis is covered Continued [facility] stay due to: home environment unsafe for pt Discharge planning: home
[2017-03-22] MEDS: FAMOTIDINE 20 MG TAB PO SCH (20:40)
[2017-03-23] VITALS (16 sets, daily range): BP systolic 121–157; BP diastolic 60–91; PULSE 56–82; TEMP 36.4–37; O2SAT 94–98
[2017-03-23] MEDS: NITROGLYCERIN OINT 2% 1GM PACKET EXT SCH ×4 (03:42→20:34)
[2017-03-23 05:19] LABS: BASO % 0.1 %; BASO ABS # 0.01 K/uL (0-0.2); COMPLETE YES; EOS % 1.1 %; IG% 0.1 %; LYMPH % 24.3 %; LYMPH ABS # 1.92 K/uL (1.2-3.4); MEAN CELL VOLUME 90.1 fL (80-100); MEAN CORPUSCULAR HEMOGLOBIN 30.5 pg (25-34); MEAN CORPUSCULAR HGB CONC 33.9 g/dl (32-36); MEAN PLATELET VOLUME 11.1 fL (7.4-10.4); MONO % 10.4 %; PLATELET COUNT 183 K/uL (130-400); RED BLOOD COUNT 4.55 M/uL (4.7-6.1); WHITE BLOOD COUNT 7.91 K/uL (4.8-10.8)
[2017-03-23 05:37] LABS: PARTIAL THROMBOPLASTIN RATIO 3.2; PROTHROMBIN TIME (PATIENT) 10.5 SECONDS (9.0-12.0)
[2017-03-23 05:40] LABS: BUN/CREATININE RATIO 14.4 (10-20); CALCIUM 8.7 mg/dl (8.5-10.1); CREATININE 0.87 mg/dl (0.60-1.40); MAGNESIUM 2.2 mg/dl (1.8-2.4); POTASSIUM 3.8 mmol/L (3.5-5.1)
[2017-03-23] MEDS ORDERED: NiCARDipine HCL INJ 2.5 MG/ML 10 ML AMP ONE (06:30)
[2017-03-23] MEDS ORDERED: HEPARIN SOD (PORCINE) 1000 UNIT/ML 10 ML VIAL ONE ×2 (06:30→07:57)
[2017-03-23] MEDS ORDERED: NITROGLYCERIN/D5W 100MCG/ML 20ML SYR ONE (06:31)
[2017-03-23] MEDS ORDERED: FENTANYL CITRATE INJ 50 MCG/1 ML 2 ML VIAL ONE ×2 (06:31→08:12)
[2017-03-23] MEDS ORDERED: MIDAZOLAM HCL 1 MG/ML 2ML VIAL ONE (06:31)
[2017-03-23] MEDS ORDERED: TICAGRELOR 90 MG TAB PO ONE (08:58)
--- NOTE | 2017-03-23 09:16 | Procedure Note ---
Pre-Mod Sedation Assessment General Date of Moderate Sedation: Mar 23, 2017. Vital Signs: Vital Signs Past 12 Hours Date Time Temp Pulse Resp B/P (MAP) Pulse Ox O2 Delivery O2 Flow Rate FiO2 03/23/17 09:00 62 16 114/77 (89) 98 Mask 3 03/23/17 04:07 36.4 66 20 154/75 (101) 98 Room Air 03/23/17 04:00 Room Air 03/23/17 00:00 Nasal Cannula 2.0 03/22/17 23:49 36.4 67 20 135/74 (94) 97 Nasal Cannula 2.0 Review Cardiovascular: regular rate, rhythm, no edema Abdomen: normal bowel sounds, non tender Lungs: chest non-tender, lungs clear Airway Class: III Pre-Sedation Airway Assessment Oral Cavity: Dentures Able to Visualize Vocal Cords: No Short Thick Neck: No Hx of Sleep Apnea: No Smoking Status: Never Smoker Mallampati Classification: Class III ASA Classification: Class III Procedure Planning Contraindications-for Mod Sed: None Yes Notes The planned sedation has been discussed with the patient and consent obtained. I have identified the patient, determined the appropriateness of sedation and have assessed the patient immediately prior to the procedure. All medicine(s) and interventions are by my order.
--- NOTE | 2017-03-23 09:17 | Procedure Note ---
Post-Mod Sedation Assessment General Date of Moderate Sedation Mar 23, 2017. Vital Signs: Vital Signs Past 12 Hours Date Time Temp Pulse Resp B/P (MAP) Pulse Ox O2 Delivery O2 Flow Rate FiO2 03/23/17 09:00 62 16 114/77 (89) 98 Mask 3 03/23/17 04:07 36.4 66 20 154/75 (101) 98 Room Air 03/23/17 04:00 Room Air 03/23/17 00:00 Nasal Cannula 2.0 03/22/17 23:49 36.4 67 20 135/74 (94) 97 Nasal Cannula 2.0 Review - Discharge Criteria Vital Signs Stable: Yes Alert/Oriented/Conversant: Yes Returned to Baseline Mental St: Yes Nausea Absent/Minimal: Yes Pain/Discomfort/Absent/Minimal: Yes Normal/Baseline Respirations: Yes Active Bleeding?: No Pt Received D/C Instructions: N/A Prescriptions Given: Transmitted Specific Proced. D/C Criteria Distal Pulses Present (Cardiac: Yes Groin site assessed-Card Cath: N/A Voided Prior To Discharge: N/A Discharged Patients Adult Escort/Transportation: Yes
--- NOTE | 2017-03-23 09:29 | Cardiac Catheterization ---
Procedure Note Procedure Date Mar 23, 2017. Pre-Procedure Diagnosis Non STEMI, CAD, Cardiomyopathy AUC Score 8 Post-Procedure Diagnosis Severe CAD, Successful PCI Procedure(s) Performed Coronary Angiography, Drug Eluting Stent Systems Integrator Amaury Motor Adjuster(s) Noe Estimated Blood Loss 25 Medication(s) Fentanyl, Heparin, Nitroglycerin, Versed, Lidocaine 1% Ticagrelor 180 mg Summary of Findings Indication: Staged PCI of bifurcating OM1 and mid RCA Access: 6Fr Right Radial artery Catheters: EBU 3.75 guide, JR4 guide -- PCI -- Antithrombotic therapy: Heparin, Ticagrelor - Intervention OM1 LM cannulated with EBU 3.75 guide Doorperson Or Luggage Porter 50 wire passed across lesion into superior OM1 branch BMW wire passed across lesion into inferior OM1 branch OM1 lesion pre-dilated with 2.5 compliant balloon Dilated lesion stented with 2.75 x 18 Guin AURELIO BMW wire removed from inferior branch and rewired through stent struts into inferior OM1 Stent post-dilated with 3.5 NC balloon Ostium inferior branch dilated with 2.0 and 2.5 balloon --> severe ostial stenosis post ballooning with downstream disease --> decision made to place a second stent 2.75 x 22 Baltazar AURELIO placed from OM1 into inferior branch through prior stent struts ([place] stenting) Doorperson Or Luggage Porter 50 re-wired into superior branch and stent struts into superior branch dilated with 2.5 compliant balloon Kissing balloon post-dilation with 3.5 NC in inferior branch, 2.5 balloon in superior branch. IC vasodilators administered for spasm Post procedure ARIANA 3 flow, stent well expanded with minimal residual stenosis and no apparent cardiac complications. - Intervention RCA BMW wire passed into distal vessel mid RCA lesion predilated with 2.5 compliant balloon Difficult delivering stent through prior stent to target lesion and prowater afia wire placed. Lesion/prior stent predilated again with 3.5 NC balloon. 3.0 x 18 Guin stent placed to mid RCA overlapping with distal end of prior stent. Stent post-dilated with 3.5 NC balloon to high-atmospheres IC vasodilators administered for spasm Post procedure ARIANA 3 flow, stent well expanded with minimal residual stenosis and no apparent cardiac complications. Arterial Closure: TR Band Summary: 1. Successful PCI of bifurcating large OM1 with 2 drug-eluting stents (2.75 x 22 Guin, 2.75 x 18 Guin, post-dilated to 3.5). 2. Successful PCI of mid RCA with 3.0 x 18 Baltazar AURELIO (post-dilated to 3.5) Recommendations: To PCU for continued monitoring Loaded with Ticagrelor 180mg in manager cath lab. Stop clopidogrel and heparin infusion. Continue dual-antiplatelet therapy with ASA/Ticagrelor for 1 year Continue statin, and ASCVD risk factor modification Consult cardiac Rehab Hemodynamics Rest Ao: 118/62/85 Final Ao: 113/64/85 LV: -- Recommendations PCI without planned CABG Specimens None Radiation Exposure (mGy) 6796 (patient counseled on signs and symptoms of radiation injury) Contrast (mls) 230 Visi Fluids (cc crystalloids) 209 NSS Drains None Anesthesia Moderate Procedural Complication(s) None Disposition PCU ACC Data Cardiac Status Clinical evaluation leading to the procedure CAD Presntation: Non STEMI Closure Device Percutaneous Entry Location: Radial Closure Device: Radial Band Recommendations: PCI without planned CABG PCI Indication: PCI for high risk Non-STEMI, Staged PCI Lesion Segment Name: OM1 Culprit Artery: No Stenosis Prior to Rx (%): 90 Chronic Total Occlusion: No IVUS: No FFR: No Pre-Procedure ARIANA Flow: 3 Previously Treated Lesion: No Lesion Complexity: High/C Lesion Length (mm): 18 Thrombus Present: No Bifurcation Lesion: Yes Guidewire Across Lesion: Yes Guidewire: Stenosis Post-Procedure (%): 0 Post-Procedure ARIANA Flow: 3 Device(s) Deployed: Yes Lesion #2 Segment Name: mid RCA Culprit Artery: No Stenosis Prior to Rx (%): 75 Chronic Total Occlusion: No IVUS: No FFR: No Pre-Procedure ARIANA Flow: 3 Previously Treated Lesion: No Lesion Complexity: Non-High/Non-C Lesion Length (mm): 15 Thrombus Present: No Bifurcation Lesion: No Guidewire Across Lesion: Yes Guidewire: Stenosis Post-Procedure (%): 0 Post-Procedure ARIANA Flow: 3 Device(s) Deployed: Yes Intraprocedure Events Significant Dissection: No Perforation: No
[2017-03-23] MEDS ORDERED: SODIUM CHLORIDE 0.9% 1000ML 1,000 ML IV SCH (09:32)
[2017-03-23] MEDS: VENLAFAXINE HCL XR 75 MG CAPXR PO SCH (10:10)
[2017-03-23] MEDS: PANTOprazole SOD 40 MG TAB PO SCH (10:10)
[2017-03-23] MEDS: AMLODIPINE BESYLATE 5 MG TAB PO SCH (10:10)
[2017-03-23] MEDS: ATORVASTATIN 40 MG TAB PO SCH (10:11)
[2017-03-23] MEDS: LISINOPRIL 10 MG TAB PO SCH (10:11)
[2017-03-23] MEDS: ASPIRIN 81 MG ECTAB PO SCH (10:11)
[2017-03-23] MEDS: FAMOTIDINE 20 MG TAB PO SCH ×2 (10:17→19:53)
[2017-03-23] MEDS ORDERED: POLYETHYLENE (MIRALAX) 17 GM PACK PO ONE (14:23)
[2017-03-23] MEDS ORDERED: POLYETHYLENE (MIRALAX) 17 GM PACK PO PRN (14:30)
--- NOTE | 2017-03-23 14:35 | Hospitalist Progress Note ---
Hospitalist Progress Note Date of Service Mar 23, 2017. Subjective Pain: None PO Intake: Tolerating PO diet Voiding: no voiding problems Patient reports feeling well post cath. He denies any chest pain. He states he did initially had some nausea post cath but this resolved after eating lunch , which he tolerated well. He is passing gas. He states he has not had a bowel movement since prior to arrival. The patient denies fevers, chills, sweats, chest pain, palpitations, claudication, cough, wheezing, shortness of breath, nausea, vomiting, abdominal pain, dysuria, hematuria, urinary retention , paralysis, weakness, numbness and tingling. Additional Comments: See HPI for pertinent positives and negatives. All other systems reviewed and negative. Objective Vital Signs Date Time Temp Pulse Resp B/P (MAP) Pulse Ox O2 Delivery O2 Flow Rate FiO2 03/23/17 13:19 58 146/67 (93) 03/23/17 12:19 57 146/78 (100) 03/23/17 12:00 98 Room Air 03/23/17 11:28 37.0 56 18 148/60 (89) 95 03/23/17 11:19 64 131/87 (102) 03/23/17 10:49 61 157/91 (113) 03/23/17 10:19 56 141/72 (95) 03/23/17 10:04 56 142/76 (98) 03/23/17 09:49 36.4 56 141/83 (102) 03/23/17 09:30 97 Room Air 03/23/17 09:30 36.4 59 20 141/83 (102) 97 Room Air 03/23/17 09:15 66 16 122/77 (92) 96 Room Air 03/23/17 09:00 62 16 114/77 (89) 98 Mask 3 03/23/17 04:07 36.4 66 20 154/75 (101) 98 Room Air 03/23/17 04:00 Room Air 03/23/17 00:00 Nasal Cannula 2.0 03/22/17 23:49 36.4 67 20 135/74 (94) 97 Nasal Cannula 2.0 03/22/17 20:30 56 117/63 (81) 03/22/17 19:25 Nasal Cannula 2.0 03/22/17 19:09 36.5 59 18 125/72 (89) 94 Nasal Cannula 2.0 03/22/17 16:00 Nasal Cannula 2.0 03/22/17 15:15 36.4 56 16 114/66 (82) 95 Nasal Cannula 2.0 Physical Exam Notes: General appearance: Well-developed, well-nourished, no apparent distress Head: Normocephalic, atraumatic Eyes: Normal inspection, PERRL, EOMI ENT: Normal ENT inspection, hearing grossly normal, pharynx normal Neck: Supple, no JVD, trachea midline Respiratory/Chest: Lungs clear to auscultation, normal breath sounds, no respiratory distress Cardiovascular: +Bradycardia. Regular rhythm, no gallop, no murmur Abdomen/GI: Normal bowel sounds, non-tender, soft Extremities/Musculoskeletal: +Trace pitting edema. Normal inspection, no calf tenderness Neurological/Psych: Alert, normal mood/affect, oriented x 3 Skin: Normal color, warm/dry, no rash Laboratory Results Last 24 Hours Test 03/22/17 16:27 03/23/17 04:43 03/23/17 07:23 03/23/17 07:52 Activated Partial Thromboplast Time 64.1 SECONDS 83.3 SECONDS Partial Thromboplastin Ratio 2.5 3.2 White Blood Count 7.91 K/uL Red Blood Count 4.55 M/uL Hemoglobin 13.9 g/dL Hematocrit 41.0 % Mean Corpuscular Volume 90.1 fL Mean Corpuscular Hemoglobin 30.5 pg Mean Corpuscular Hemoglobin Concent 33.9 g/dl Platelet Count 183 K/uL Mean Platelet Volume 11.1 fL Neutrophils (%) (Auto) 64.0 % Lymphocytes (%) (Auto) 24.3 % Monocytes (%) (Auto) 10.4 % Eosinophils (%) (Auto) 1.1 % Basophils (%) (Auto) 0.1 % Neutrophils # (Auto) 5.06 K/uL Lymphocytes # (Auto) 1.92 K/uL Monocytes # (Auto) 0.82 K/uL Eosinophils # (Auto) 0.09 K/uL Basophils # (Auto) 0.01 K/uL RDW Standard Deviation 39.6 fL RDW Coefficient of Variation 12.1 % Immature Granulocyte % (Auto) 0.1 % Immature Granulocyte # (Auto) 0.01 K/uL Prothrombin Time 10.5 SECONDS Prothromb Time International Ratio 1.0 Sodium Level 141 mmol/L Potassium Level 3.8 mmol/L Chloride Level 105 mmol/L Carbon Dioxide Level 30 mmol/L Anion Gap 6.0 mmol/L Blood Urea Nitrogen 13 mg/dl Creatinine 0.87 mg/dl Est Creatinine Clear Calc Drug Dose 90.7 ml/min Estimated GFR () 101.3 Estimated GFR (Non- 87.4 BUN/Creatinine Ratio 14.4 Random Glucose 124 mg/dl Calcium Level 8.7 mg/dl Magnesium Level 2.2 mg/dl Kaolin Activated Coagulation Time 230 SECONDS 235 SECONDS Test 03/23/17 08:14 Kaolin Activated Coagulation Time 246 SECONDS Assessment and Plan 72 y/o male with a history of CAD, h/o CA s/p stent in 1999, HTN, HLD, anxiety/ depression and GERD who presented to the ED on 03/21 with chest pain. NSTEMI--resolved -Admit to telemetry -Cardiology consulted, appreciate recs: second cardiac cath done today. 2 AURELIO placed in OM1 and 1 AURELIO placed in RCA. Continue DAPT with ASA/ticagrelor for 1 year. D/C Plavix and heparin drip. Pt loaded with ticagrelor in analytical lab technician. -Cardiac cath 03/22 revealed severe multi-vessel CAD. 99% occlusion LAD, 90% OM1 , 70-80% RCA. 1 AURELIO placed in LAD -Cardiac cath 03/23 as above -D/c heparin drip and Plavix -NSS at 125 cc/hr -Echo shows LVEF 50%, grade 1 diastolic dysfunction, moderate hypokinesis inferior wall and lateral wall. Severe hypokinesis in basal septum. -Continue ASA 81 mg PO qd -Ticagrelor 90 mg PO BID -Continue atorvastatin 80 mg PO qd -Continue to monitor post cath CAD, h/o CA, HTN, HLD--stable -Continue Norvasc 5 mg PO qd, lisinopril 10 mg PO qd and statin as above -DAPT x 1 year w/ASA and ticagrelor Anxiety and depression -Continue Effexor 75 mg PO qd GERD -Pepcid 20 mg PO BID, Protonix 40 mg PO qd DVT prophylaxis -Loaded with ticagrelor in analytical lab technician Code Status -Level I, FULL RESUSCITATION STATUS
[2017-03-23] MEDS: TICAGRELOR 90 MG TAB PO SCH (19:53)
[2017-03-24 04:10] VITALS: BP 124/76; PULSE 63; TEMP 36.4; O2SAT 98
[2017-03-24] MEDS: NITROGLYCERIN OINT 2% 1GM PACKET EXT SCH ×2 (04:22→11:01)
[2017-03-24 04:51] LABS: BASO % 0.1 %; BASO ABS # 0.01 K/uL (0-0.2); COMPLETE YES; EOS % 1.2 %; HEMATOCRIT 42.5 % (42-52); IG% 0.5 %; MEAN CELL VOLUME 89.3 fL (80-100); MEAN CORPUSCULAR HEMOGLOBIN 30.3 pg (25-34); MEAN CORPUSCULAR HGB CONC 33.9 g/dl (32-36); MEAN PLATELET VOLUME 11.1 fL (7.4-10.4); MONO % 10.5 %; NEUT % 69.7 %; PLATELET COUNT 185 K/uL (130-400); RED BLOOD COUNT 4.76 M/uL (4.7-6.1); WHITE BLOOD COUNT 7.79 K/uL (4.8-10.8)
[2017-03-24 05:15] LABS: BUN/CREATININE RATIO 15.1 (10-20); CALCIUM 8.1 mg/dl (8.5-10.1); CREATININE 0.71 mg/dl (0.60-1.40); POTASSIUM 3.8 mmol/L (3.5-5.1)
[2017-03-24 07:58] VITALS: BP 144/64; PULSE 69; TEMP 36.5; O2SAT 96
[2017-03-24] MEDS: AMLODIPINE BESYLATE 5 MG TAB PO SCH (08:18)
[2017-03-24] MEDS: ASPIRIN 81 MG ECTAB PO SCH (08:18)
[2017-03-24] MEDS: PANTOprazole SOD 40 MG TAB PO SCH (08:19)
[2017-03-24] MEDS: VENLAFAXINE HCL XR 75 MG CAPXR PO SCH (08:19)
[2017-03-24] MEDS: FAMOTIDINE 20 MG TAB PO SCH (08:19)
[2017-03-24] MEDS: ATORVASTATIN 40 MG TAB PO SCH (08:19)
[2017-03-24] MEDS: LISINOPRIL 10 MG TAB PO SCH (08:19)
[2017-03-24] MEDS: TICAGRELOR 90 MG TAB PO SCH (08:20)
[2017-03-24] MEDS ORDERED: ATOR-26 PO (09:55)
[2017-03-24] MEDS ORDERED: BRL90 PO (09:55)
[2017-03-24] MEDS ORDERED: ASPEC81 PO (09:55)
[2017-03-24] MEDS ORDERED: AMLO-110 PO (09:55)
[2017-03-24] MEDS ORDERED: LSN10 PO (09:55)
--- NOTE | 2017-03-24 10:10 | Discharge Instructions ---
Discharge Instructions Date of Service Mar 24, 2017. Admission Reason for Admission: Hx Of Myocardial Infarction, Nstemi Discharge Discharge Diagnosis / Problem: Non ST elevation myocardial infarction Discharge Goals Goal(s): Decrease discomfort, Improve function, Diagnostic testing, Therapeutic intervention Activity Recommendations Activity Limitations: per Instructions/Follow-up section . Instructions / Follow-Up Instructions / Follow-Up You were admitted to the hospital with chest pain. You were found to have a non ST elevation myocardial infarction (NSTEMI), a type of heart attack. You were taken to the cardiac catheterization lab which revealed severe multiple vessel coronary artery disease. A stent was placed in the left anterior descending (LAD) artery. A second cath was done the following day, where 3 additional stents were placed. Several changes were made to your home blood pressure and cholesterol medications, you were placed on anti-platelet medications due to your stents. You are now medically stable for discharge. Medications: *Your amlodipine (Norvasc) dose has been decreased from 10 mg to 5 mg daily. *Your HCTZ/lisinopril medication has been changed to lisinopril 10 mg daily. *Your cholesterol medication was changed from simvastatin to atorvastatin 80 mg daily. *Please take aspirin 81 mg daily and ticagrelor (Brilinta) 90 mg twice daily for at least 1 year due to your stents. *Continue your other home mediations as prescribed. Follow up: *You have been scheduled to follow up at Dr. Barroso's office with Laura Bach PA-C, on April 20 at 12:20 pm. *You have been scheduled to follow up with cardiology with Axel Herrera PA-C, on March 31 at 1:00 pm. The cardiology office is located at [address] [place] [address] in [address]. CARDIAC CATH ACTIVITY RECOMMENDATIONS: Excess manipulation of the right wrist should be avoided for the next 24-48 hours. * No lifting over 2 pounds (approximately a 1/2 gallon of milk) with the utilized arm for 24 hours. * No strenuous activity such as bowling or tennis for 3 days. * Keep the site of the procedure covered with a bandage for 24 hours. *You may shower the day after the procedure. Do not take a tub bath or submerge the puncture site in water for the next 3 days. *Do not operate any motorized equipment for 3 days. SPECIAL CARE INSTRUCTIONS: The site may be slightly bruised and sore following your procedure. Should any of the following occur, contact the Dr. who performed your procedure. 1. Redness/inflammation, swelling, chills, or fever, or colored drainage at procedure site within 3-7 days after your procedure. 2. Coldness, discoloration, ongoing numbness, severe pain, or swelling. Expect mild tingling of hand and tenderness at the puncture site for up to three days. If this persists beyond three days, or other symptoms develop, notify the Dr. who performed your procedure. BLEEDING: If the procedure site on your wrist begins to bleed, do not panic 1. Place 1 or 2 fingers firmly just slightly above the insertion site to stop the bleeding. You may be able to feel your pulse as you hold pressure. 2. Lift your finger after 5 minutes to see if the bleeding has stopped. 3. Once the bleeding has stopped, gently wipe the wrist area clean with a bandage. * If the bleeding from your wrist does not stop after 10 minutes, or if there is a large amount of bleeding or spurting, call 911 (do not drive yourself to the hospital). SKIN IRRITATION: * You may experience some redness and/or swelling in the area where radiation was administered. If any skin irritation occurs, please contact your family physician. Home Care Following a Heart Attack: * Take your medications exactly as directed. Don't skip doses. * Remember that recovery after a heart attack takes time. Plan to rest for at lease 4-8 weeks while you recover. Then return to normal activity when your doctor says it's okay. * Ask your doctor about joining a heart rehabilitation program. * Tell your doctor if you are feeling depressed. Feelings of sadness are common after a heart attack, but it is important that you speak to someone if you are feeling overwhelmed by these feelings. * If you are having chest pain, call 911 for an ambulance. Do NOT drive yourself to the hospital. * Ask your family members to learn CPR. * Learn to take your own blood pressure and pulse. Keep a record of your results. Ask your doctor when you should seek emergency medical attention. He or she will tell you which blood pressure reading is dangerous. Lifestyle Changes: * Maintain a healthy weight. Get help to lose any extra pounds. * Cut back on salt. * Limit canned, dried, packaged, and fast foods. * Don't add salt to your food. * Season foods with herbs instead of salt when you cook. * Break the smoking habit. Enroll in a stop-smoking program to improve your chances of success. * Limit fatty foods. * Ask your doctor about having your lipid levels checked regularly. * Build up your activity according to your doctor's recommendation. * Ask your doctor when it's okay to resume sexual activity. * Tell your doctor about any erectile dysfunction (ED) medication you are taking. Some ED medications are not safe if you take certain heart medications. * Try to manage stress. Follow Up: It is important for you to keep your follow up appointments with your medical provider. Current Hospital Diet Patient's current hospital diet: AHA Diet (Heart Healthy) Discharge Diet Recommended Diet: AHA Diet (Heart Healthy) Procedures Procedures Performed: Cardiac catheterization with stent placement, echocardiogram Pending Studies Studies pending at discharge: no Medical Emergencies . Who to Call and When: Medical Emergencies: If at any time you feel your situation is an emergency, please call 911 immediately. Call 911 immediately or go to your nearest Emergency Room if you experience any of the following: Warning Signs and Symptoms of a Heart Attack * Chest pain that is not relieved by medication * Shortness of breath . Non-Emergent Contact Non-Emergency issues call your: Primary Care Provider, Payroll Processor Call Non-Emergent contact if: you have a fever, your pain is not controlled, your pain is worsening, your pain is unusual for you, your pain is concerning you, wound has increased drainage, wound has increased redness, wound has increased pain, you have any medication questions . . "Provider Documentation" section prepared by Mary Ann Montelongo. . AMI Core Measures Reason no ASA as I/P: Treatment provided - N/A Reason no ASA at D/C: Treatment provided - N/A Reason no statin as I/P: Treatment provided - N/A Reason no statin at D/C: Treatment provided - N/A VTE Core Measure Inpt VTE Proph given/why not?: Unfractionated heparin SQ
--- NOTE | 2017-03-24 10:14 | Discharge Summary ---
Discharge Summary Date of Service Mar 24, 2017. Discharge Summary Admission Date: Mar 21, 2017 at 12:01 Discharge Date: Mar 24, 2017 Discharge Disposition: Home Principal Diagnosis: NSTEMI Immunizations: Have You Had Influenza Vaccine: Unknown History of Tetanus Vaccine?: Unknown History of Pneumococcal: Unknown History of Hepatitis B Vaccine: Unknown Procedures: Procedure Note Procedure Date Mar 21, 2017. Pre-Procedure Diagnosis Non STEMI AUC Score 8 Post-Procedure Diagnosis Severe CAD, Successful PCI, Normal Intracardiac Pressures Procedure(s) Performed Coronary Angiography, Left Heart Cath, Drug Eluting Stent [place] Setter Suki Dynamic Balancer Set Up Worker(s) Kimberlee Estimated Blood Loss 20 Medication(s) Fentanyl, Heparin, Nicardipine, Nitroglycerin, Versed, Lidocaine 1% Summary of Findings Indication: High-risk NSTEMI Access: 6Fr Right Radial artery Catheters: Trap, JL3.5; EBU 3.75 guide Findings: LM - Luminal irregularities LAD - Calcified mild diffuse disease proximally, 99% calcified mid segment focal stenosis; distal luminal irregularities as wraps around apex. Circumflex - Large caliber vessel, 90% focal stenosis in mid segment of large OM1 before bifurcates. RCA - Dominant, patent proximal to mid segment stent with 20% diffuse instent restenosis; 70-80% mid segment focal stenosis just after prior stent, 40-50% distal RCA stenosis just before bifurcation with R-PDA; R-PDA with 60-70% distal stenosis. LVEDP - 17 -- PCI -- Antithrombotic therapy: Heparin, Clopidogrel Procedure: LM cannulated with EBU 3.75 guide Engineering Department Chair 50 wire passed across lesion into distal vessel Mid LAD lesion predilated with 2.5 and 3.0 compliant balloons Dilated lesion stented with 3.0 x 22 Norman AURELIO Stent post-dilated with 3.25 noncompliant balloon to high atmospheres IC vasodilators administered for spasm Post procedure ARIANA 3 flow, stent well expanded with minimal residual stenosis and no apparent cardiac complications. Arterial Closure: TR Band Summary: 1. Severe multi-vessel coronary artery disease - 99% calcified mid LAD - 90% mid large OM1 - 70-80% mid RCA 2. Borderline intracardiac filling pressure 3. Successful PCI of mid LAD with 3.0 x 22 [place]zar AURELIO (post-dilated to 3.25) Recommendations: To PCU for continued monitoring Loaded with Clopidogrel in labeling strategist Continue dual-antiplatelet therapy with ASA/Clopidogrel for 1 year Continue statin, and ASCVD risk factor modification Consult cardiac Rehab IV hydration, Echo tomorrow. Will plan for staged PCI of residual OM1, mid RCA disease early AM 03/23 Procedure Note Procedure Date Mar 23, 2017. Pre-Procedure Diagnosis Non STEMI, CAD, Cardiomyopathy AUC Score 8 Post-Procedure Diagnosis Severe CAD, Successful PCI Procedure(s) Performed Coronary Angiography, Drug Eluting Stent [place] Setter Suki Dynamic Balancer Set Up Worker(s) Liu Estimated Blood Loss 25 Medication(s) Fentanyl, Heparin, Nitroglycerin, Versed, Lidocaine 1% Ticagrelor 180 mg Summary of Findings Indication: Staged PCI of bifurcating OM1 and mid RCA Access: 6Fr Right Radial artery Catheters: EBU 3.75 guide, JR4 guide -- PCI -- Antithrombotic therapy: Heparin, Ticagrelor - Intervention OM1 LM cannulated with EBU 3.75 guide Engineering Department Chair 50 wire passed across lesion into superior OM1 branch BMW wire passed across lesion into inferior OM1 branch OM1 lesion pre-dilated with 2.5 compliant balloon Dilated lesion stented with 2.75 x 18 Norman AURELIO BMW wire removed from inferior branch and rewired through stent struts into inferior OM1 Stent post-dilated with 3.5 NC balloon Ostium inferior branch dilated with 2.0 and 2.5 balloon --> severe ostial stenosis post ballooning with downstream disease --> decision made to place a second stent 2.75 x 22 Bal[place]zar AURELIO placed from OM1 into inferior branch through prior stent struts ([place] stenting) Engineering Department Chair 50 re-wired into superior branch and stent struts into superior branch dilated with 2.5 compliant balloon Kissing balloon post-dilation with 3.5 NC in inferior branch, 2.5 balloon in superior branch. IC vasodilators administered for spasm Post procedure ARIANA 3 flow, stent well expanded with minimal residual stenosis and no apparent cardiac complications. - Intervention RCA BMW wire passed into distal vessel mid RCA lesion predilated with 2.5 compliant balloon Difficult delivering stent through prior stent to target lesion and prowater afia wire placed. Lesion/prior stent predilated again with 3.5 NC balloon. 3.0 x 18 Norman stent placed to mid RCA overlapping with distal end of prior stent. Stent post-dilated with 3.5 NC balloon to high-atmospheres IC vasodilators administered for spasm Post procedure ARIANA 3 flow, stent well expanded with minimal residual stenosis and no apparent cardiac complications. Arterial Closure: TR Band Summary: 1. Successful PCI of bifurcating large OM1 with 2 drug-eluting stents (2.75 x 22 Baltazar, 2.75 x 18 [place], post-dilated to 3.5). 2. Successful PCI of mid RCA with 3.0 x 18 Norman AURELIO (post-dilated to 3.5) Recommendations: To PCU for continued monitoring Loaded with Ticagrelor 180mg in labeling strategist. Stop clopidogrel and heparin infusion. Continue dual-antiplatelet therapy with ASA/Ticagrelor for 1 year Continue statin, and ASCVD risk factor modification Consult cardiac Rehab Echo: Interpretation Summary * Name: TREVOR LANDIS Study Date: 03/22/2017 06:27 AM * Patient Location: 2\S\E220\S\1 HR: 55 * : 1945 (M/d/yyyy) Gender: Male Height: 70 in * Age: 72 yrs Ethnicity: CA Weight: 207 lb * Ordering Physician: Sami Rebolledo * Referring Physician: SUKI * Performed By: Evonne Dave RDCS * * Reason For Study: AMI * BSA: 2.1 m2 * -- Conclusions -- * There is mild concentric left ventricular hypertrophy. * Left ventricular systolic function is low normal. * Grade I diastolic dysfunction, (abnormal relaxation pattern). * There are regional wall motion abnormalities as specified. * The left atrium is borderline dilated. * There is mild mitral regurgitation. Procedure Details * A contrast injection of Definity was performed to improve assessment of LV function. * Contrast was injected into an intravenous site in the left arm. * One vial of Definity ultrasound contrast was diluted in normal saline to a total volume of 10 ml. A total of '2' ml of solution was administered during imaging. * Lot # [id number] of Definity utilized for procedure. * Expiration date MAY 11. * The attending nurse who injected the contrast agent was RICK REGALADO RN. Left Ventricle * The left ventricle is normal in size. * There is mild concentric left ventricular hypertrophy. * Left ventricular systolic function is low normal. * Ejection fraction 50% * Grade I diastolic dysfunction, (abnormal relaxation pattern). * There are regional wall motion abnormalities as specified. * There is moderate hypokinesis of the basal and mid inferior wall with moderate hypokinesis of the basal lateral wall and severe hypokinesis of the basal septum. Right Ventricle * The right ventricle is grossly normal size. * The right ventricular systolic function is normal as assessed by tricuspid annular plane systolic excursion (TAPSE) (normal >1.5 cm). Atria * The left atrium is borderline dilated. * Right atrial size is normal. Mitral Valve * The mitral valve is grossly normal. * There is mild mitral regurgitation. Tricuspid Valve * The tricuspid valve is not well visualized, but is grossly normal. * Significant tricuspid regurgitation is absent. Aortic Valve * The aortic valve is trileaflet. * Aortic valve sclerosis moderate, without significant aortic valvular stenosis. * No hemodynamically significant valvular aortic stenosis. * Trace aortic regurgitation. * There is an eccentric jet of aortic insufficiency directed against the anterior mitral leaflet. Great Vessels * The aortic root is normal size. Pericardium/Pleural * There is no pericardial effusion. Consultations: Cardiology--Dr. Rebolledo Medication Reconciliation New Medications: Aspirin (Aspirin EC Low Dose) 81 Mg Ectab 81 MG PO QAM for 30 Days, #30 TABS Atorvastatin (Lipitor) 80 Mg Tab 1 TAB PO DAILY for 30 Days, #30 TAB 0 Refills Lisinopril (Zestril) 10 Mg Tab 10 MG PO QAM for 30 Days, #30 TAB Ticagrelor (Brilinta) 90 Mg Tab 90 MG PO BID for 30 Days, #60 TAB Changed Medications: Amlodipine (Norvasc) 5 Mg Tab 5 MG PO DAILY for 30 Days, #30 TAB (Changed from: Amlodipine (Norvasc) 10 Mg Tab 10 Mg PO DAILY) Continued Medications: Omeprazole (Prilosec) 20 Mg Capcr 20 MG PO DAILY, CAP Venlafaxine Hcl (Effexor Xr) 75 Mg Cap 75 MG PO DAILY, CAP Discontinued Medications: Hctz/Lisinopril (Lisinopril/Hctz 10/12.5 Mg) 1 Ea Tab 1 TAB PO DAILY, TAB Simvastatin (Zocor) 20 Mg Tab 20 MG PO DAILY, TAB Discharge Exam Patient reports feeling well and is anxious to be discharged. He denies any chest pain, SOB, or pain at the cath insertion site. He is tolerating a PO diet , urinating without difficulty, passing gas had moving his bowels. The patient denies fevers, chills, sweats, chest pain, palpitations, claudication, cough, wheezing, shortness of breath, nausea, vomiting, abdominal pain, dysuria, hematuria, urinary retention, paralysis, weakness, numbness and tingling. Review of Systems: Constitutional: No fever, No chills, No sweats Eyes: No worsening of vision, No eye pain, No diplopia ENT: No hearing loss, No sore throat, No trouble swallowing Respiratory: No cough, No wheezing, No shortness of breath Cardiovascular: No chest pain, No claudication, No palpitations Abdomen: No pain, No nausea, No vomiting Musculoskeletal: No joint pain, No muscle pain, No calf pain Genitourinary - Male: No hematuria, No dysuria, No urinary retention Neurologic: No paralysis, No weakness, No numbness/tingling Integumentary: No rash, No itch, No color change Physical Exam: General Appearance: WD/WN, no apparent distress Eyes: normal inspection, PERRL, EOMI ENT: normal ENT inspection, hearing grossly normal, pharynx normal Neck: supple, no JVD, trachea midline Respiratory/Chest: lungs clear, normal breath sounds, no respiratory distress Cardiovascular: regular rate, rhythm, no gallop, no murmur Abdomen / GI: normal bowel sounds, non tender, soft Extremities: normal inspection, no calf tenderness, no pedal edema Neurologic/Psychiatric: alert, normal mood/affect, oriented x 3 Skin: normal color, warm/dry, no rash Hospital Course 72 y/o male with a history of CAD, h/o VA s/p stent in 1999, HTN, HLD, anxiety/ depression and GERD who presented to the ED on 03/21 with chest pain. NSTEMI--resolved -Admit to telemetry. Pt developed short 6 beat run of v-tach around 23:15 on but otherwise remained in sinus rhythm/sinus bradycardia with HR in 50s-70s. -Cardiology consulted, appreciate recs: Continue dual anti-platelet therapy with ASA/ticagrelor for 1 year. Consult cardiac rehab. -Cardiac cath 03/22 revealed severe multi-vessel CAD. 99% occlusion LAD, 90% OM1 , 70-80% RCA. 1 AURELIO placed in LAD -Cardiac cath 03/23, 2 AURELIO placed in OM1 and 1 AURELIO placed in RCA -D/c heparin drip and Plavix -NSS at 125 cc/hr -Echo shows LVEF 50%, grade 1 diastolic dysfunction, moderate hypokinesis inferior wall and lateral wall. Severe hypokinesis in basal septum. -Continue ASA 81 mg PO qd -Ticagrelor 90 mg PO BID -Continue atorvastatin 80 mg PO qd -Trop post cath peaked at 10, trending down at discharge CAD, h/o VA, HTN, HLD--stable -Continue Norvasc 5 mg PO qd, lisinopril 10 mg PO qd and statin as above. HCTZ d/c'd on admission. -DAPT x 1 year w/ASA and ticagrelor Anxiety and depression -Continue Effexor 75 mg PO qd GERD -Pepcid 20 mg PO BID, Protonix 40 mg PO qd -Resume home Prilosec on discharge DVT prophylaxis -Loaded with ticagrelor in labeling strategist Code Status -Level I, FULL RESUSCITATION STATUS Total Time Spent: Greater than 30 minutes This includes examination of the patient, discharge planning, medication reconciliation, and communication with other providers. Discharge Instructions Please refer to the electronic Patient Visit Report (Discharge Instructions) for additional information. Follow-Up F/u Laura Bach PA-C on 04/20 F/u Axel Herrera PA-C cardiology on 03/31. Cardiology will arrange cardiac rehab. Additional Copies To Teddy Barroso M.D.; Marcio Bach PA-C
[2017-03-24 10:46] VITALS: BP 144/64; PULSE 69; TEMP 36.5; O2SAT 96
--- NOTE | 2017-03-24 12:39 | Cardiology Follow-Up ---
Subjective Subjective Date of Service: Mar 24, 2017. Pt evaluation today including: conversation w/ patient, conversation w/ family , physical exam, chart review, lab review, review of studies, conversation w/ remediation consultant, review of inpatient medication list Additional Details: Feeling well. No chest pain. No other new concerns. Tele reviewed -- occasional ectopy. asymptomatic. Problem List Medical Problems: (1) Chest pain Status: Acute (2) NSTEMI (non-ST elevated myocardial infarction) Status: Acute Review of Systems Constitutional: No fever, No chills, No sweats, No weight loss, No weakness, No fatigue, No problem reported Eyes: No worsening of vision, No eye pain, No redness, No discharge, No diplopia ENT: No hearing loss, No unusual epistaxis, No nasal symptoms, No sore throat, No tinnitus, No dental problems, No trouble swallowing Respiratory: No cough, No sputum, No wheezing, No shortness of breath, No dyspnea on exertion, No dyspnea at rest, No hemoptysis Cardiac: No chest pain, No orthopnea, No PND, No edema, No claudication, No palpitations Abdomen: No pain, No nausea, No vomiting, No diarrhea, No constipation Musculoskeletal: No joint pain, No muscle pain, No swelling, No calf pain Male : No dysuria, No urinary frequency, No incontinence, No nocturia more than once/night, No slowing stream, No hematuria Neurologic: No memory loss, No paralysis, No weakness, No numbness/tingling, No vertigo, No balance problems Psychiatric: No depression symptoms, No anhedonism, No anxiety, No insomnia, No substance abuse Heme: No abnormal bleeding/bruising, No clotting problems, No swollen lymph nodes, No night sweats Endo: No fatigue, No excessive thirst, No excessive urination Skin: No rash, No itch, No new/changing skin lesions, No color change, No bleeding Objective Vital Signs Last Vital Signs Documentation Date Time Temp Pulse Resp B/P (MAP) Pulse Ox O2 Delivery O2 Flow Rate FiO2 03/24/17 10:46 36.5 69 16 96 Room Air 03/24/17 07:58 144/64 (90) 03/23/17 09:00 3 Physical Exam: General Appearance: no apparent distress ENT: normal ENT inspection, hearing grossly normal Neck: supple, no JVD Respiratory/Chest: lungs clear, normal breath sounds, no respiratory distress Cardiovascular: regular rate, rhythm, no edema, no murmur Abdomen: non tender, soft Extremities: no pedal edema, + pertinent finding (no right radial artery access site complications. ) Neurologic/Psychiatric: alert, normal mood/affect, oriented x 3 Skin: normal color, warm/dry, no rash Lymphatic: no adenopathy Assessment and Plan 1. NSTEMI 2. 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 HTN 4. Dyslipidemia Chest pain free. Hemodynamically stable. No access site complications. Stable labs. From a cardiac standpoint OK for discharge today. Follow-up in 2-3 weeks with cardiology. Reviewed restrictions with patient. On discharge -- - Continue DAPT with ASA/Brillanta - Beta-aleksandra to be started as an outpatient with intermittent bradycardia while admitted. - Continue high-intensity statin Continued [facility] stay due to: home environment unsafe for pt Discharge planning: home Medications: Current Inpatient Medications Medications (Trade) Dose Ordered Sig/José Manuel Route Start Time Stop Time Status Last Admin Dose Admin Ondansetron HCl (Zofran Inj) 4 mg Q6H PRN IV 03/21/17 11:30 04/20/17 11:29 03/23/17 11:16 4 MG Zolpidem Tartrate (Ambien Tab) 5 mg HSZ PRN PO 03/21/17 11:30 04/20/17 11:29 Nitroglycerin (Nitrostat Tab) 0.4 mg UD PRN SL 03/21/17 11:30 04/20/17 11:29 Nitroglycerin (Nitroglycerin 2% Oint) 1 inch Q6H EXT 03/21/17 16:00 04/20/17 15:59 03/24/17 04:22 1 INCH Morphine Sulfate (MoRPHine SULFATE INJ) 2 mg Q30M PRN IV 03/21/17 11:30 04/04/17 11:29 Aspirin (Ecotrin Tab) 81 mg QAM PO 03/22/17 09:00 04/21/17 08:59 03/24/17 08:18 81 MG Amlodipine Besylate (Norvasc Tab) 5 mg DAILY PO 03/22/17 09:00 04/21/17 08:59 03/24/17 08:18 5 MG Venlafaxine HCl (effeXOR EXTENDED REL CAP) 75 mg DAILY PO 03/22/17 09:00 04/21/17 08:59 03/24/17 08:19 75 MG Lisinopril (Zestril Tab) 10 mg QAM PO 03/22/17 09:00 04/21/17 08:59 03/24/17 08:19 10 MG Atorvastatin Calcium (Lipitor Tab) 80 mg QAM PO 03/22/17 09:00 04/21/17 08:59 03/24/17 08:19 80 MG Pantoprazole Sodium (Protonix Tab) 40 mg QAM PO 03/22/17 09:00 04/21/17 08:59 03/24/17 08:19 40 MG Acetaminophen (Tylenol Tab) 650 mg Q4H PRN PO 03/21/17 20:30 04/20/17 20:29 Famotidine (Pepcid Tab) 20 mg BID PO 03/22/17 21:00 04/21/17 20:59 03/24/17 08:19 20 MG Ticagrelor (Brilinta Cap) 90 mg BID PO 03/23/17 21:00 04/22/17 20:59 03/24/17 08:20 90 MG Polyethylene (Miralax Powder Packet) 17 gm DAILY PRN PO 03/23/17 14:30 04/22/17 14:29 Lab Results: 03/24/17 04:37 Red Blood Count 4.76, Mean Corpuscular Volume 89.3, Mean Corpuscular Hemoglobin 30.3, Mean Corpuscular Hemoglobin Concent 33.9, Mean Platelet Volume 11.1, Neutrophils (%) (Auto) 69.7, Lymphocytes (%) (Auto) 18.0, Monocytes (%) (Auto) 10.5, Eosinophils (%) (Auto) 1.2, Basophils (%) (Auto) 0.1, Neutrophils # (Auto ) 5.43, Lymphocytes # (Auto) 1.40, Monocytes # (Auto) 0.82, Eosinophils # (Auto ) 0.09, Basophils # (Auto) 0.01 03/24/17 04:37 Test 03/24/17 04:37 03/24/17 07:47 White Blood Count 7.79 K/uL (4.8-10.8) Red Blood Count 4.76 M/uL (4.7-6.1) Hemoglobin 14.4 g/dL (14.0-18.0) Hematocrit 42.5 % (42-52) Mean Corpuscular Volume 89.3 fL (80-100) Mean Corpuscular Hemoglobin 30.3 pg (25-34) Mean Corpuscular Hemoglobin Concent 33.9 g/dl (32-36) Platelet Count 185 K/uL (130-400) Mean Platelet Volume 11.1 fL (7.4-10.4) Neutrophils (%) (Auto) 69.7 % Lymphocytes (%) (Auto) 18.0 % Monocytes (%) (Auto) 10.5 % Eosinophils (%) (Auto) 1.2 % Basophils (%) (Auto) 0.1 % Neutrophils # (Auto) 5.43 K/uL (1.4-6.5) Lymphocytes # (Auto) 1.40 K/uL (1.2-3.4) Monocytes # (Auto) 0.82 K/uL (0.11-0.59) Eosinophils # (Auto) 0.09 K/uL (0-0.5) Basophils # (Auto) 0.01 K/uL (0-0.2) RDW Standard Deviation 39.0 fL (36.4-46.3) RDW Coefficient of Variation 12.1 % (11.5-14.5) Immature Granulocyte % (Auto) 0.5 % Immature Granulocyte # (Auto) 0.04 K/uL (0.00-0.02) Activated Partial Thromboplast Time 25.4 SECONDS (21.0-31.0) Partial Thromboplastin Ratio 1.0 Anion Gap 5.0 mmol/L (3-11) Est Creatinine Clear Calc Drug Dose 111.0 ml/min Estimated GFR () 110.2 Estimated GFR (Non- 95.1 BUN/Creatinine Ratio 15.1 (10-20) Calcium Level 8.1 mg/dl (8.5-10.1) Magnesium Level 2.0 mg/dl (1.8-2.4) Creatine Kinase MB 16.1 ng/ml (0.5-3.6) Creatine Kinase MB Ratio (0-3.0) Troponin I 4.870 ng/ml (0-0.045)
== END 2017-03-24 11:45 | disposition home or self-care (01) | DRG 246 ==
LOC: EDBD 07:59 → C.EDB 08:00 → C.MED 12:01 → ENRESERV 12:25 → C.2T 21:45
PROVIDERS: ADMIT Hospitalist; ATTEND Hospitalist
PROC: B2101ZZ Fluoroscopy of Single Coronary Artery using Low Osmolar Contrast (ICD-10-PCS; 2017-03-21)
PROC: 027034Z Dilation of Coronary Artery, One Artery with Drug-eluting Intraluminal Device, Percutaneous Approach (ICD-10-PCS; 2017-03-21)
PROC: 4A023N7 Measurement of Cardiac Sampling and Pressure, Left Heart, Percutaneous Approach (ICD-10-PCS; 2017-03-21)
PROC: 3E033PZ Introduction of Platelet Inhibitor into Peripheral Vein, Percutaneous Approach (ICD-10-PCS; 2017-03-21)
PROC: 0270356 Dilation of Coronary Artery, One Artery, Bifurcation, with Two Drug-eluting Intraluminal Devices, Percutaneous Approach (ICD-10-PCS; principal; 2017-03-23 06:54)
PROC: B2111ZZ Fluoroscopy of Multiple Coronary Arteries using Low Osmolar Contrast (ICD-10-PCS; principal; 2017-03-23 06:54)
PROC: 027034Z Dilation of Coronary Artery, One Artery with Drug-eluting Intraluminal Device, Percutaneous Approach (ICD-10-PCS; principal; 2017-03-23 06:54)
DX: I21.4 Non-ST elevation (NSTEMI) myocardial infarction (principal); I42.9 Cardiomyopathy, unspecified; I25.10 Atherosclerotic heart disease of native coronary artery without angina pectoris; I10 Essential (primary) hypertension; Z87.891 Personal history of nicotine dependence; I25.2 Old myocardial infarction; E78.5 Hyperlipidemia, unspecified; K21.9 Gastro-esophageal reflux disease without esophagitis; Z79.82 Long term (current) use of aspirin; Z95.5 Presence of coronary angioplasty implant and graft

== ENCOUNTER 2017-05-05 08:35 | Observation (INO) | payer OTHER ==
[~2017-05-05] VITALS: Ht 177.8 cm; Wt 88.7 kg
[~2017-05-05 08:35] MED LIST changes: -ASPEC325 PO; +ASPEC81 PO; -ATOR-22 PO; +ATOR-26 PO; +BRL90 PO; -CLX20 PO; -LISI5TAB3 PO; +LSN10 PO; -NXM/40 PO; +PRLSR20 PO; +VENL75CA PO
[2017-05-05] MEDS ORDERED: ASPIRIN 81 MG CHEW PO STA (08:54)
[2017-05-05 09:08] LABS: COMPLETE YES; EOS % 0.1 %; HEMATOCRIT 44.7 % (42-52); IG% 0.3 %; LYMPH % 16.6 %; MEAN CORPUSCULAR HEMOGLOBIN 31.9 pg (25-34); MEAN CORPUSCULAR HGB CONC 36.2 g/dl (32-36); MEAN PLATELET VOLUME 11.4 fL (7.4-10.4); MONO % 8.3 %; NEUT % 74.7 %; PLATELET COUNT 196 K/uL (130-400); RED BLOOD COUNT 5.08 M/uL (4.7-6.1); WHITE BLOOD COUNT 7.83 K/uL (4.8-10.8)
--- NOTE | 2017-05-05 09:09 | DIAGNOSTIC IMAGING REPORT ---
CHEST ONE VIEW PORTABLE CLINICAL HISTORY: Atypical chest pain COMPARISON STUDY: 03/21/2017 FINDINGS: The heart is the upper limits of normal in size. The patient appears mildly hyperinflated. There is no failure. There is no focal pulmonary consolidation. There are no pleural effusions.[ IMPRESSION: No active disease in the chest. Electronically signed by: Rip Galdamez M.D. 05/05/2017 9:07 AM Dictated Date/Time: 05/05/2017 9:07 AM
[2017-05-05 09:17] LABS: PROTHROMBIN TIME (PATIENT) 10.6 SECONDS (9.0-12.0)
[2017-05-05] MEDS ORDERED: TICA1TAB PO (09:21)
[2017-05-05] MEDS ORDERED: ASPI81TA28 PO (09:21)
[2017-05-05] MEDS ORDERED: LISI-461 PO (09:21)
[2017-05-05] MEDS ORDERED: ATOR-26 PO (09:21)
[2017-05-05 09:24] LABS: ALT/SGPT 22 U/L (12-78); BLOOD UREA NITROGEN 10 mg/dl (7-18); BUN/CREATININE RATIO 10.6 (10-20); CALCIUM 9.1 mg/dl (8.5-10.1); CARBON DIOXIDE 26 mmol/L (21-32); CHLORIDE 103 mmol/L (98-107); CREATININE 0.94 mg/dl (0.60-1.40); GLUCOSE 112 mg/dl (70-99); POTASSIUM 3.8 mmol/L (3.5-5.1); SODIUM 137 mmol/L (136-145)
[2017-05-05 09:30] LABS: ALKALINE PHOSPHATASE 107 U/L (45-117); AST/SGOT 16 U/L (15-37)
[2017-05-05] MEDS ORDERED: CLOP1TAB15 PO (09:34)
[2017-05-05] MEDS ORDERED: METO25TA3 PO (09:34)
--- NOTE | 2017-05-05 10:03 | EMERGENCY ROOM VISIT NOTE ---
History Report prepared by Tyesha: Verito Fajardo Under the Supervision of: Dr. Ty Bartlett M.D. First contact with patient: 08:44 Chief Complaint: CARDIAC ASSESSMENT Stated Complaint: HEART SURG. X 6-7 WKS, SWEATING, NOT FEELING WELL History of Present Illness The patient is a 72 year old male who presents to the Emergency Room for a cardiac assessment. The patient had an NSTEMI about 6 weeks ago and had stents placed at that time. With his NSTEMI he was feeling nauseated and diaphoretic. Over the past couple of days he has started to experiencing similar symptoms. He reports a loss of appetite, nausea, and diaphoresis. He states that he generally feels unwell. The patient notes that his symptoms were worse 6 weeks ago when he had his NSTEMI. His symptoms today are not worse with exertion. He denies any chest pain or shortness of breath. He is on Plavix and aspirin. He took 81 mg of aspirin this morning. Source of History: patient Onset: 6 weeks ago Position: chest Quality: other (nausea) Timing: constant Associated Symptoms: + diaphoresis, + nausea, No chest pain, No SOB Review of Systems See HPI for pertinent positives & negatives. A total of 10 systems reviewed and were otherwise negative. Past Medical & Surgical Medical Problems: (1) Hx of myocardial infarction (2) Hypertension (3) Nausea Surgical Problems: (1) History of hernia repair Family History Diabetes mellitus FHx: cancer Heart disease Hypertension Social History Smoking Status: Former Smoker Alcohol Use: occasionally Drug Use: none Housing Status: lives alone Occupation Status: retired Current/Historical Medications Scheduled Aspirin (Aspirin Ec), 81 MG PO DAILY Atorvastatin (Lipitor), 80 MG PO DAILY Clopidogrel (Plavix), 75 MG PO DAILY Lisinopril (Zestril), 10 MG PO QAM Metoprolol Succ (Toprol Xl) (Toprol-Xl), 25 MG PO DAILY Omeprazole (Prilosec), 20 MG PO DAILY Venlafaxine Hcl (Effexor Xr), 75 MG PO DAILY Allergies Coded Allergies: No Known Allergies (Unverified , 05/05/17) Physical Exam Vital Signs Date Time Temp Pulse Resp B/P (MAP) Pulse Ox O2 Delivery O2 Flow Rate FiO2 05/05/17 09:22 66 20 150/91 95 Room Air 05/05/17 09:21 94 Room Air 05/05/17 08:54 79 05/05/17 08:42 36.6 71 20 152/93 98 Room Air Physical Exam GENERAL: Patient is a healthy-appearing well-nourished 72 year old male. HEAD: Normocephalic atraumatic EYES: Ocular movements intact pupils equal and react to light OROPHARYNX mucous membranes are moist no exudates present no erythema or edema present NECK: Supple no nuchal rigidity CHEST: Good equal expansion LUNGS: Clear and equal to auscultation CARDIAC: Normal S1 and S2 ABDOMEN: Soft nontender no guarding BACK: No CVA tenderness EXTREMITIES: No pain upon palpation normal muscle strength in all groups no clubbing cyanosis or edema NEURO: Patient is following commands and answering questions appropriately. Alert and oriented x3 Cranial Nerves 2-12 grossly intact Medical Decision & Procedures ER Provider Diagnostic Interpretation: Radiology results as stated below per my review and radiologist interpretation: CHEST ONE VIEW PORTABLE CLINICAL HISTORY: Atypical chest pain COMPARISON STUDY: 03/21/2017 FINDINGS: The heart is the upper limits of normal in size. The patient appears mildly hyperinflated. There is no failure. There is no focal pulmonary consolidation. There are no pleural effusions.[ IMPRESSION: No active disease in the chest. Electronically signed by: Rip Galdamez M.D. 05/05/2017 9:07 AM Dictated Date/Time: 05/05/2017 9:07 AM Laboratory Results 05/05/17 08:55 Red Blood Count 5.08, Mean Corpuscular Volume 88.0, Mean Corpuscular Hemoglobin 31.9, Mean Corpuscular Hemoglobin Concent 36.2, Mean Platelet Volume 11.4, Neutrophils (%) (Auto) 74.7, Lymphocytes (%) (Auto) 16.6, Monocytes (%) (Auto) 8.3, Eosinophils (%) (Auto) 0.1, Basophils (%) (Auto) 0.0, Neutrophils # (Auto) 5.85, Lymphocytes # (Auto) 1.30, Monocytes # (Auto) 0.65, Eosinophils # (Auto) 0.01, Basophils # (Auto) 0.00 05/05/17 08:55 Test 05/05/17 08:55 White Blood Count 7.83 K/uL (4.8-10.8) Red Blood Count 5.08 M/uL (4.7-6.1) Hemoglobin 16.2 g/dL (14.0-18.0) Hematocrit 44.7 % (42-52) Mean Corpuscular Volume 88.0 fL (80-100) Mean Corpuscular Hemoglobin 31.9 pg (25-34) Mean Corpuscular Hemoglobin Concent 36.2 g/dl (32-36) Platelet Count 196 K/uL (130-400) Mean Platelet Volume 11.4 fL (7.4-10.4) Neutrophils (%) (Auto) 74.7 % Lymphocytes (%) (Auto) 16.6 % Monocytes (%) (Auto) 8.3 % Eosinophils (%) (Auto) 0.1 % Basophils (%) (Auto) 0.0 % Neutrophils # (Auto) 5.85 K/uL (1.4-6.5) Lymphocytes # (Auto) 1.30 K/uL (1.2-3.4) Monocytes # (Auto) 0.65 K/uL (0.11-0.59) Eosinophils # (Auto) 0.01 K/uL (0-0.5) Basophils # (Auto) 0.00 K/uL (0-0.2) RDW Standard Deviation 38.4 fL (36.4-46.3) RDW Coefficient of Variation 12.1 % (11.5-14.5) Immature Granulocyte % (Auto) 0.3 % Immature Granulocyte # (Auto) 0.02 K/uL (0.00-0.02) Prothrombin Time 10.6 SECONDS (9.0-12.0) Prothromb Time International Ratio 1.0 (0.9-1.1) Anion Gap 8.0 mmol/L (3-11) Est Creatinine Clear Calc Drug Dose 82.5 ml/min Estimated GFR () 94.8 Estimated GFR (Non- 81.8 BUN/Creatinine Ratio 10.6 (10-20) Calcium Level 9.1 mg/dl (8.5-10.1) Total Bilirubin 0.7 mg/dl (0.2-1) Direct Bilirubin 0.2 mg/dl (0-0.2) Aspartate Amino Transf (AST/SGOT) 16 U/L (15-37) Alanine Aminotransferase (ALT/SGPT) 22 U/L (12-78) Alkaline Phosphatase 107 U/L (45-117) Total Protein 7.6 gm/dl (6.4-8.2) Albumin 3.9 gm/dl (3.4-5.0) Lipase 87 U/L (73-393) Labs reviewed by ED physician. Medications Administered Medications (Trade) Dose Ordered Sig/José Manuel Route Start Time Stop Time Status Last Admin Dose Admin Aspirin (Aspirin Chew) 324 mg NOW STAT PO 05/05/17 08:54 05/05/17 08:55 DC 05/05/17 09:20 324 MG ECG Indication: nausea Rate (beats per minute): 63 Rhythm: normal sinus Findings: no acute ischemic change, no ectopy ED Course 0844: Past medical records reviewed. The patient was evaluated in room A9B. A complete history and physical examination was performed. 0854: Aspirin 324 mg PO 1027: I reassessed the patient at this time. He is feeling better and resting comfortably. I discussed the results and treatment plan with the patient. I answered all pertaining questions that he had. He expressed understanding and verbalized agreement. 1031: I spoke with Dr. Barraza. We discussed the patients case. The patient will be evaluated by the [facility] for further management. Medical Decision Differential diagnosis: Etiologies such as cardiac ischemia, aortic dissection, pulmonary embolism, pneumonia, pneumothorax, musculoskeletal, infections, pericarditis, myocarditis , esophageal rupture, gastrointestinal, as well as others were entertained. This is a 72-year-old male who presents emergency department complaining of nausea. The patient recently had a CABG performed. He denies missing any of his Plavix medications. The patient took 1 baby aspirin this morning. The patient was sent in by his building surveyor. He has a normal EKG as well as CK-MB troponin here in the emergency department. Based on the patient's history as well as the past medical history I did discuss the case with the hospitalist service who agreed to admit the patient. Patient was given 324 mg of aspirin in the emergency department. Medication Reconcilliation Current Medication List: was personally reviewed by me Blood Pressure Screening Patient's blood pressure: Elevated blood pressure Blood pressure disposition: Referred to PCP Consults Time Called: 1029 Consulting Physician: Dr. Barraza Returned Call: [address] Barraza. We discussed the patients case. The patient will be evaluated by the [facility] for further management. Impression Primary Impression: Nausea Scribe Attestation The scribe's documentation has been prepared under my direction and personally reviewed by me in its entirety. I confirm that the note above accurately reflects all work, treatment, procedures, and medical decision making performed by me. Departure Information Dispostion Being Evaluated By Hospitalist Referrals Teddy Barroso M.D. (PCP) Patient Instructions [facility]
[2017-05-05] MEDS ORDERED: ONDANSETRON INJ 2 MG/ML 2 ML VIAL IV PRN (10:30)
[2017-05-05] MEDS ORDERED: NITROGLYCERIN 0.4 MG SL PER TAB CHARGE SL PRN (10:30)
[2017-05-05] MEDS ORDERED: ACETAMINOPHEN 325 MG TAB PO PRN (10:30)
--- NOTE | 2017-05-05 10:55 | History and Physical ---
History & Physical Date & Time of Service: May 05, 2017 at 10:47 Chief Complaint: Heart Surg. X 6-7 Wks, Sweating, Not Feeling Well Primary Care Physician: Teddy Barroso M.D. History of Present Illness Source: patient, family, spouse The patient is a 72-year-old male who presents to the emergency department with concerns regarding heart disease. He had an NSTEMI X weeks ago, and had coronary artery stents placed at that time. His symptoms at that time were that of nausea and sweating, and he feels similar symptoms have occurred over the past few days this time. He has had a decreased appetite and generally feels unwell. He was admitted again show a few days ago, and was exposed to a number of people. He denies chest pain or shortness of breath. He has been taking his aspirin and Plavix as directed. Past Medical/Surgical History Medical Problems: (1) Hx of myocardial infarction Status: Resolved (2) Hypertension Status: Chronic Surgical Problems: (1) History of hernia repair Status: Resolved Family History Diabetes mellitus FHx: cancer Heart disease Hypertension Social History Smoking Status: Former Smoker Smokeless Tobacco Use: No Alcohol Use: none Drug Use: none Marital Status: Housing status: lives with family Occupational Status: retired Immunizations History of Influenza Vaccine: Unknown History of Tetanus Vaccine?: Unknown History of Pneumococcal: Unknown History of Hepatitis B Vaccine: Unknown Multi-Drug Resistant Organisms History of MDRO: No Allergies Coded Allergies: No Known Allergies (Unverified , 05/05/17) Home Medications Scheduled Aspirin (Aspirin Ec), 81 MG PO DAILY Atorvastatin (Lipitor), 80 MG PO DAILY Clopidogrel (Plavix), 75 MG PO DAILY Lisinopril (Zestril), 10 MG PO QAM Metoprolol Succ (Toprol Xl) (Toprol-Xl), 25 MG PO DAILY Omeprazole (Prilosec), 20 MG PO DAILY Venlafaxine Hcl (Effexor Xr), 75 MG PO DAILY Review of Systems The patient denies chest pain, palpitations, shortness of breath, cough, lower extremity swelling, vision change, hearing change, sore throat, fevers, chills, weight change, vomiting, diarrhea or constipation , abdominal pain, pelvic pain, blood in urine or stool, dysuria, urinary frequency or urgency, lightheadedness , dizziness, headache, memory loss, rash, abnormal bruising or bleeding, imbalance, focal or generalized weakness, numbness or tingling in arms or legs, generalized arthralgias or myalgias, back or neck pain. The review of systems is otherwise negative other than for that already noted above, and at least 10 systems have been reviewed. Physical Exam Vital Signs Date Time Temp Pulse Resp B/P (MAP) Pulse Ox O2 Delivery O2 Flow Rate FiO2 05/05/17 09:22 66 20 150/91 95 Room Air 05/05/17 09:21 94 Room Air 05/05/17 08:54 79 05/05/17 08:42 36.6 71 20 152/93 98 Room Air The patient is awake, well-developed and adequately nourished, alert and oriented 3, normocephalic and atraumatic, lying in bed and in no acute distress. HEENT--PERRL, EOMI, mucous membranes and oropharynx normal. Neck--supple, no JVD or bruits, thyroid normal, trachea midline, no adenopathy. Heart--normal S1 and S2, no extra beats, no murmurs, rubs or gallops. Lungs--clear bilaterally with good air movement, no respiratory distress, no accessory muscle use. Abdomen--normal bowel sounds and soft, nontender and nondistended, no hernias or masses, no organomegaly and obese Extremities--no cyanosis, clubbing or edema. There are good distal pulses b/l. Dermatologic--normal skin turgor, normal color, warm and dry, no abnormal lymph nodes, no rash. Neurologic--cranial nerves II through XII grossly intact, motor and sensory examination normal. Rheumatologic--normal range of motion, nontender, muscles and joints. Psychiatric--normal affect. Diagnostics Laboratory Results Results Past 24 Hours Test 05/05/17 08:55 05/05/17 10:19 05/05/17 10:42 Range/Units White Blood Count 7.83 4.8-10.8 K/uL Red Blood Count 5.08 4.7-6.1 M/uL Hemoglobin 16.2 14.0-18.0 g/dL Hematocrit 44.7 42-52 % Mean Corpuscular Volume 88.0 80-100 fL Mean Corpuscular Hemoglobin 31.9 25-34 pg Mean Corpuscular Hemoglobin Concent 36.2 32-36 g/dl Platelet Count 196 130-400 K/uL Mean Platelet Volume 11.4 7.4-10.4 fL Neutrophils (%) (Auto) 74.7 % Lymphocytes (%) (Auto) 16.6 % Monocytes (%) (Auto) 8.3 % Eosinophils (%) (Auto) 0.1 % Basophils (%) (Auto) 0.0 % Neutrophils # (Auto) 5.85 1.4-6.5 K/uL Lymphocytes # (Auto) 1.30 1.2-3.4 K/uL Monocytes # (Auto) 0.65 0.11-0.59 K/uL Eosinophils # (Auto) 0.01 0-0.5 K/uL Basophils # (Auto) 0.00 0-0.2 K/uL RDW Standard Deviation 38.4 36.4-46.3 fL RDW Coefficient of Variation 12.1 11.5-14.5 % Immature Granulocyte % (Auto) 0.3 % Immature Granulocyte # (Auto) 0.02 0.00-0.02 K/uL Prothrombin Time 10.6 9.0-12.0 SECONDS Prothromb Time International Ratio 1.0 0.9-1.1 Sodium Level 137 136-145 mmol/L Potassium Level 3.8 3.5-5.1 mmol/L Chloride Level 103 98-107 mmol/L Carbon Dioxide Level 26 21-32 mmol/L Anion Gap 8.0 3-11 mmol/L Blood Urea Nitrogen 10 7-18 mg/dl Creatinine 0.94 0.60-1.40 mg/dl Est Creatinine Clear Calc Drug Dose 82.5 ml/min Estimated GFR () 94.8 Estimated GFR (Non- 81.8 BUN/Creatinine Ratio 10.6 10-20 Random Glucose 112 70-99 mg/dl Calcium Level 9.1 8.5-10.1 mg/dl Total Bilirubin 0.7 0.2-1 mg/dl Direct Bilirubin 0.2 0-0.2 mg/dl Aspartate Amino Transf (AST/SGOT) 16 15-37 U/L Alanine Aminotransferase (ALT/SGPT) 22 12-78 U/L Alkaline Phosphatase 107 45-117 U/L Total Creatine Kinase 45 39-308 U/L Creatine Kinase MB 0.9 0.5-3.6 ng/ml Creatine Kinase MB Ratio 2.0 0-3.0 Troponin I < 0.015 0-0.045 ng/ml Total Protein 7.6 6.4-8.2 gm/dl Albumin 3.9 3.4-5.0 gm/dl Lipase 87 73-393 U/L Diagnostic Radiology Patient Name: TREVOR LANDIS Unit Number: [id number] Dictated: 05/05/17906 Transcribed: 05/05/17906 ARG Printed Date/Time: [~ rep prt dt]/[~ rep prt tm] [~ rep ct labl] - [~ rep ct ivnm] [facility] Radiology Department [place], [place] [id number] Dictated: 05/05/17906 Transcribed: 05/05/17906 ARG Printed Date/Time: [~ rep prt dt]/[~ rep prt tm] [~ rep ct labl] - [~ rep ct ivnm] CHEST ONE VIEW PORTABLE CLINICAL HISTORY: Atypical chest pain COMPARISON STUDY: 03/21/2017 FINDINGS: The heart is the upper limits of normal in size. The patient appears mildly hyperinflated. There is no failure. There is no focal pulmonary consolidation. There are no pleural effusions.[ IMPRESSION: No active disease in the chest. Electronically signed by: Rip Galdamez M.D. 05/05/2017 9:07 AM Dictated Date/Time: 05/05/2017 9:07 AM The status of this report is Signed. Draft = Not yet reviewed or approved by Radiologist. Signed = Reviewed and approved by Radiologist. <AttendingPhy></AttendingPhy> <FamilyPhy>Teddy Barroso M.D.</FamilyPhy > <PrimaryPhy>Teddy Barroso M.D.</PrimaryPhy> <UnitNumber>[id number]</ UnitNumber> <VisitNumber>[id number]</VisitNumber> <PatientName>TREVOR LANDIS</PatientName> <DateOfBirth>1945</DateOfBirth> <Location>[facility]< /Location> <ServiceDate>05/05/17</ServiceDate> <MNE>ESINDI</MNE> <OrderingPhy> Ty Bartlett MD</OrderingPhy> <OrderingPhyMNE>f rep ord dr bello</ OrderingPhyMNE> <DictatingPhyMNE>f rep dict dr bello</DictatingPhyMNE> <CCListMNE> f rep ct emae</CCListMNE> <AdmittingPhyMNE>f pt admit dr bello</AdmittingPhyMNE> < AttendingPhyMNE>f pt attend dr bello</AttendingPhyMNE> <ConsultingPhyMNE>f pt consult dr bello</ConsultingPhyMNE> <FamilyPhyMNE>f pt fam dr bello</FamilyPhyMNE> <OtherPhyMNE>f pt other dr bello</OtherPhyMNE> < PrimaryPhyMNE>f pt prim care dr bello</PrimaryPhyMNE> <ReferringPhyMNE>f pt referring dr bello</ReferringPhyMNE> EKG EKG shows normal sinus rhythm at 63 bpm, there are no acute ST-T changes. Impression Assessment and Plan Nausea/question anginal equivalent/CAD/NSTEMI/recent coronary artery stents-- The patient will be admitted to telemetry for serial cardiac enzymes, and cardiac rhythm monitoring. Continue aspirin 81 mg daily. Continue Proventil into 90 mg by mouth twice a day Continue lisinopril 10 mg by mouth every morning. Order an abdominal flat plate. Consult his vehicle trimmer Dr. Rebolledo Hyperlipidemia-- Continue atorvastatin. Depression-- continue Effexor XR 75 mg by mouth daily. GERD-- Change omeprazole to pantoprazole. Level of Care Telemetry Advanced Directives Existing Advance Directive: No Existing Living Will: No Existing Power of Siding Applicator: No Resuscitation Status FULL RESUSCITATION VTE Prophylaxis VTE Risk Assessment Done? Y/N: Yes Risk Level: Moderate Given or contraindicated: SCD's Social Service Consult None Apply
[2017-05-05 11:15] LABS: CKMB/CK RATIO 1.6 (0-3.0)
[2017-05-05] MEDS ORDERED: IV FLUIDS COMPLETED PRN (11:15)
[2017-05-05 12:18] VITALS: O2SAT 96
[2017-05-05 12:45] VITALS: BP 131/69; PULSE 55; TEMP 36.4; O2SAT 98
[2017-05-05 13:24] VITALS: Ht 177.8 cm; Wt 88.7 kg
[2017-05-05] MEDS ORDERED: INFLUENZA VACCINE HIGH DOSE 65+ 0.5 ML SYR IM. ONE (14:45)
[2017-05-05] MEDS ORDERED: INFLUENZA ADMINISTRATION CHARGE ONE (14:45)
--- NOTE | 2017-05-05 14:53 | DIAGNOSTIC IMAGING REPORT ---
KUB CLINICAL HISTORY: nausea COMPARISON STUDY: No previous studies for comparison. FINDINGS: There are no abnormally dilated loops of large or small bowel. There are scattered stool within the colon. Degenerative changes are present within the lumbar spine. There is a sclerotic lesion injection of the right iliac crest likely representing a bone island. There are vascular calcifications present. IMPRESSION: No evidence of pathologic bowel dilatation. Electronically signed by: Rip Galdamez M.D. 05/05/2017 2:52 PM Dictated Date/Time: 05/05/2017 2:38 PM
[2017-05-05 15:19] VITALS: BP 138/78; PULSE 72; TEMP 36.8; O2SAT 98
[2017-05-05 19:00] LABS: CKMB/CK RATIO 1.8 (0-3.0)
[2017-05-05 19:47] VITALS: BP 126/67; PULSE 68; TEMP 36.6; O2SAT 98
[2017-05-05] MEDS: FAMOTIDINE 20 MG TAB PO SCH (20:44)
[2017-05-05 21:34] LABS: INFLUENZA A PCR Neg for Influ A (NEG); INFLUENZA B PCR Neg for Influ B (NEG)
[2017-05-05 23:28] VITALS: BP 148/78; PULSE 49; TEMP 36.5; O2SAT 97
--- NOTE | 2017-05-06 01:25 | CARDIOLOGY CONSULTATION ---
DATE OF CONSULTATION: 05/05/2017 CONSULTATION REQUESTED BY: Martinez Barraza MD REASON FOR CONSULTATION: History of recent stenting and recurrent shortness of breath. HISTORY OF PRESENT ILLNESS: Mr. Jackson is a very pleasant 72-year-old man with a history of coronary artery disease status post recent NSTEMI with multivessel stenting including stent to his LAD, circumflex and RCA, who was readmitted today in the setting of diaphoresis, shortness of breath and nausea. Following his stenting in February, the patient had been doing well. He states he had been doing all of his prior activities without limitations. He denies any recurrent angina. Over the last several days he has had increased nausea as well as periods of episodic diaphoresis and some shortness of breath. He said that the symptoms were similar to what he had in the setting of an NSTEMI, although he states that, "at that time he knew what was going on." He denies any omkar chest pain over the last several days. He denies any palpitations or presyncope. As a result, he presented to the Emergency Department where initial EKG showed sinus rhythm without any ST changes. His first 2 troponins were negative. The patient at present feels well. He states that his nausea has somewhat improved after eating something. PAST MEDICAL HISTORY: 1. Coronary artery disease -- prior stents in 2001 of proximal RCA --most recently PCI with 3.0 x 22 mm Mobile drug-eluting stent to mid LAD in February 2017 with subsequent repeat staged PCI with a 2.75 x 22 mm Mobile and 2.75 x 18 mm Mobile to bifurcating obtuse marginal: 3.0 x 18 mm Baltazar drug-eluting stent to mid RCA. 2. Dyslipidemia. 3. Hypertension. 4. Gastroesophageal reflux disease. 5. Depression. 6. Degenerative joint disease. SOCIAL HISTORY: He is a former smoker. He is . He denies any excessive alcohol use now. CURRENT MEDICATIONS: Include clopidogrel 75 mg daily, metoprolol 25 mg daily XL, Effexor 75 mg daily, Lipitor 80 mg daily, omeprazole 20 mg daily, aspirin 81 and lisinopril 10 mg daily. ALLERGIES: No known drug allergies. REVIEW OF SYSTEMS: Ten point review of systems was completed and otherwise negative as stated in HPI. PHYSICAL EXAMINATION: VITAL SIGNS: Temperature 36.6, pulse 55, blood pressure 131/69 and satting 98% on room air. GENERAL: The patient appears comfortable, in no acute distress. HEENT: Sclerae are anicteric. Oropharynx is clear. Mucous membranes are moist. NECK: Supple with no lymphadenopathy. LUNGS: Clear to auscultation bilaterally. HEART: Regular rate and rhythm with no murmurs, rubs or gallops. ABDOMEN: Soft, nontender and nondistended with positive bowel sounds. EXTREMITIES: Warm. He had intact distal pulses including 2+ radial pulses bilaterally. SKIN: Shows no rashes or lesions. NEUROLOGIC: Nonfocal. PSYCHIATRIC: He is alert and oriented. DATA: Sodium 137, potassium 3.8, BUN 10 and creatinine 0.9. LFTs were within normal limits. Lipase was normal. First 2 troponins were less than 0.015. A chest x-ray showed no acute cardiopulmonary process. EKG showed normal sinus rhythm with resolved T-wave inversions across the anterolateral leads. IMPRESSION AND PLAN: 1. New suspected gastrointestinal symptoms. 2. Recent non-ST elevation myocardial infarction status post multivessel stenting. 3. Hypertension. 4. Dyslipidemia. 5. Gastroesophageal reflux disease. Mr. Jackson is here with nonspecific GI upset and diaphoresis over the last several days. He has had no recurrent angina and his presenting EKG and initial biomarkers showed no evidence of cardiac injury. At this point suspicion that his current symptoms are related to stent thrombosis is very low. Time-course is too early for significant progression of his prior coronary disease. In that setting, I feel that the likelihood of his current symptoms being related to coronary artery disease is low and would favor further evaluation for potential GI sources. From a cardiac standpoint, would follow up on third troponin. Continue to monitor on telemetry. If stable, could be discharged home on prior cardiac meds. We will plan to follow up the patient as an outpatient. Thank you for the consultation. MIGEL
[2017-05-06 02:14] LABS: CKMB/CK RATIO 2.4 (0-3.0)
[2017-05-06 04:00] VITALS: BP 142/79; PULSE 49; TEMP 36.6; O2SAT 99
[2017-05-06 06:40] LABS: COMPLETE YES; EOS % 1.3 %; HEMATOCRIT 44.4 % (42-52); IG% 0.2 %; LYMPH % 29.8 %; LYMPH ABS # 1.64 K/uL (1.2-3.4); MEAN CELL VOLUME 89.2 fL (80-100); MEAN CORPUSCULAR HEMOGLOBIN 30.7 pg (25-34); MEAN CORPUSCULAR HGB CONC 34.5 g/dl (32-36); MEAN PLATELET VOLUME 11.3 fL (7.4-10.4); MONO % 9.8 %; NEUT % 58.9 %; PLATELET COUNT 186 K/uL (130-400); RED BLOOD COUNT 4.98 M/uL (4.7-6.1); WHITE BLOOD COUNT 5.51 K/uL (4.8-10.8)
[2017-05-06 06:48] LABS: PROTHROMBIN TIME (PATIENT) 10.7 SECONDS (9.0-12.0)
[2017-05-06 07:13] LABS: BUN/CREATININE RATIO 16.9 (10-20); CALCIUM 8.7 mg/dl (8.5-10.1); CREATININE 0.95 mg/dl (0.60-1.40); MAGNESIUM 2.1 mg/dl (1.8-2.4); POTASSIUM 3.7 mmol/L (3.5-5.1)
[2017-05-06 07:23] VITALS: BP 152/78; PULSE 49; TEMP 36.5; O2SAT 92
[2017-05-06] MEDS: LISINOPRIL 10 MG TAB PO SCH ×2 (08:47→08:55)
[2017-05-06] MEDS: METOPROLOL SUCC 25MG EXT REL TAB PO SCH ×2 (08:47→08:55)
[2017-05-06] MEDS: FAMOTIDINE 20 MG TAB PO SCH ×3 (08:48→08:59)
[2017-05-06] MEDS: PANTOprazole SOD 40 MG TAB PO SCH ×2 (08:48→08:50)
[2017-05-06] MEDS: CLOPIDOGREL BISULFATE 75 MG TAB PO SCH ×2 (08:48→08:50)
[2017-05-06] MEDS: ASPIRIN 81 MG ECTAB PO SCH ×2 (08:55→08:59)
[2017-05-06] MEDS: ATORVASTATIN 40 MG TAB PO SCH ×2 (08:55→08:58)
[2017-05-06] MEDS: VENLAFAXINE HCL XR 75 MG CAPXR PO SCH ×2 (08:55→08:57)
--- NOTE | 2017-05-06 11:18 | Discharge Instructions ---
Discharge Instructions Date of Service May 06, 2017. Admission Reason for Admission: Heart Surg. X 6-7 Wks, Sweating, Not Feeling Well Discharge Discharge Diagnosis / Problem: diaphoresis, nausea Discharge Goals Goal(s): Decrease discomfort, Improve function, Increase independence, Improve disease control, Diagnostic testing, Therapeutic intervention Activity Recommendations Activity Limitations: resume your previous activity Exercise/Sports Limitations: as tolerated . Instructions / Follow-Up Instructions / Follow-Up Patient to be discharged home No further chest pain Unlikely to be cardiac in nature Please continue all home medications Please follow up with Dr Rebolledo in 1-2 weeks Please follow up with Dr Barroso in 1-2 weeks Current Hospital Diet Patient's current hospital diet: AHA Diet (Heart Healthy) Discharge Diet Recommended Diet: AHA Diet (Heart Healthy) Pending Studies Studies pending at discharge: no Medical Emergencies . Who to Call and When: Medical Emergencies: If at any time you feel your situation is an emergency, please call 911 immediately. . Non-Emergent Contact Non-Emergency issues call your: Primary Care Provider Call Non-Emergent contact if: you have any medication questions . . "Provider Documentation" section prepared by Bola Zabala. . VTE Core Measure Inpt VTE Proph given/why not?: Other Anticoagulation, SCD's
[2017-05-06 11:21] VITALS: BP 152/78; PULSE 49; TEMP 36.5; O2SAT 92
--- NOTE | 2017-05-06 14:19 | Discharge Summary ---
Discharge Summary Date of Service May 06, 2017. Discharge Summary Admission Date: May 05, 2017 at 10:39 Discharge Date: May 06, 2017 Discharge Disposition: Home Principal Diagnosis: Nausea, diaphoresis Immunizations: Have You Had Influenza Vaccine: Unknown History of Tetanus Vaccine?: Unknown History of Pneumococcal: Unknown History of Hepatitis B Vaccine: Unknown Consultations: Cardiology Medication Reconciliation Continued Medications: Aspirin (Aspirin Ec) 81 Mg Tab 81 MG PO DAILY Atorvastatin (Lipitor) 80 Mg Tab 80 MG PO DAILY, TAB Clopidogrel (Plavix) 75 Mg Tab 75 MG PO DAILY, TAB Lisinopril (Zestril) 10 Mg Tab 10 MG PO QAM, TAB Metoprolol Succ (Toprol Xl) (Toprol-Xl) 25 Mg Tabcr 25 MG PO DAILY, TAB Omeprazole (Prilosec) 20 Mg Capcr 20 MG PO DAILY, CAP Venlafaxine Hcl (Effexor Xr) 75 Mg Cap 75 MG PO DAILY, CAP Discharge Exam Review of Systems: Constitutional: No fever, No chills, No sweats, No weakness ENT: No hearing loss, No unusual epistaxis, No nasal symptoms, No sore throat Respiratory: No cough, No sputum, No wheezing, No shortness of breath Cardiovascular: No chest pain, No orthopnea, No PND, No edema Abdomen: No pain, No nausea, No vomiting, No diarrhea Musculoskeletal: No joint pain, No muscle pain, No swelling, No calf pain Genitourinary - Male: No hematuria, No dysuria, No urinary frequency, No urinary urgency, No urinary hesitancy, No urinary retention Neurologic: No memory loss, No paralysis, No weakness, No numbness/tingling Psychiatric: No depression symptoms, No anhedonism, No anxiety, No insomnia Endocrine: No fatigue, No excessive thirst, No excessive urination Integumentary: No rash, No itch Hospital Course Nausea/question anginal equivalent/CAD/NSTEMI/recent coronary artery stents Patient was admitted to telemetry Trops x 3 sets unremarkable Hx of recent NSTEMI with stent placement Cardiology consulted, no further intervention at this time and pain likely GI related Cont ASA, lisinopril, statin on DC Hyperlipidemia-- Continue atorvastatin. Depression-- continue Effexor XR 75 mg by mouth daily. GERD-- Change omeprazole to pantoprazole. Total Time Spent: Greater than 30 minutes This includes examination of the patient, discharge planning, medication reconciliation, and communication with other providers. Discharge Instructions Please refer to the electronic Patient Visit Report (Discharge Instructions) for additional information. Additional Copies To Teddy Barroso M.D.
== END 2017-05-06 11:45 | disposition home or self-care (01) ==
LOC: C.EDB 08:37 → C.MED 10:39 → ENRESERV 11:28
PROVIDERS: ADMIT Hospitalist; ATTEND Hospitalist
DX: R11.0 Nausea (principal); R61 Generalized hyperhidrosis; I25.2 Old myocardial infarction; I10 Essential (primary) hypertension; Z83.3 Family history of diabetes mellitus; Z82.49 Family history of ischemic heart disease and other diseases of the circulatory system; Z87.891 Personal history of nicotine dependence; Z79.82 Long term (current) use of aspirin; Z79.02 Long term (current) use of antithrombotics/antiplatelets; Z95.818 Presence of other cardiac implants and grafts; I25.10 Atherosclerotic heart disease of native coronary artery without angina pectoris; E78.5 Hyperlipidemia, unspecified; F32.9 Major depressive disorder, single episode, unspecified; K21.9 Gastro-esophageal reflux disease without esophagitis